=== PATIENT | male | born 1950 | race Two or more races ===

== ENCOUNTER 2017-06-10 16:14 | Inpatient (IN) | payer MEDICARE, MEDICAID ==
[~2017-06-10] VITALS: Ht 175.3 cm; Wt 77.1 kg
[~2017-06-10 16:14] MED LIST: ACET-868 PO; AMLO5TAB4 PO; DONE5TAB7 PO; GABA600T PO; HYDR-4076 PO; INSU100V10 SQ; INSU100V3 SQ; LEVO500T75 PO; LORA-259 PO; MAGN400T26 PO; METF500T4 PO; OLAN5TAB6 PO; TEMA7.5C PO
--- NOTE | 2017-06-10 16:20 | NUR ---
[facility] PRIVATE EMS FROM [facility] FOR 2 EPISODES OF SYNCOPE TODAY AT 1130am, NO TRAUMA, PT WAS CAUGHT AND ASSISTED TO BED PER REPORT. PT IS NON VERBAL. PT ASSISTED TO ED BED 02. PLACED ON CONT CARDIAC AND POX MONITORING, PENDING ER MD BARON
[2017-06-10] MEDS ORDERED: IV NS 0.9% 500 ML BAG IV ONE (16:30)
[2017-06-10 16:58] LABS: BASOPHILS # (AUTO) 0.2 /CMM (0.0-0.2); BASOPHILS % (AUTO) 1.6 % (0.0-2.0); EOSINOPHILS # (AUTO) 0.1 /CMM (0.0-0.7); HEMATOCRIT 40 % (39-51); HEMOGLOBIN 13.6 g/dL (13.5-17.5); LYMPHOCYTES # (AUTO) 2.3 /CMM (0.8-4.8); LYMPHOCYTES % (AUTO) 19.4 % (20.0-44.0); MEAN CORPUSCULAR HEMOGLOBIN 30 PG (26.0-33.0); MEAN CORPUSCULAR HGB CONC 34 g/dl (31.0-36.0); MEAN CORPUSCULAR VOLUME 89 fL (80-96); MONOCYTES # (AUTO) 0.6 /CMM (0.1-1.30); MONOCYTES % (AUTO) 4.9 % (2.0-12.0); NEUTROPHILS # (AUTO) 8.8 /CMM (1.8-8.9); NEUTROPHILS % (AUTO) 73.1 % (43.0-81.0); PLATELET COUNT (AUTO) 223 /CMM (150-450); RDW COEFFICIENT OF VARIATION 12.7 (11.5-15.0); RED BLOOD CELL COUNT(AUTO) 4.51 MIL/uL (4.5-6.0)
[2017-06-10 17:08] LABS: CALCIUM, SERUM 8.7 mg/dL (8.5-10.1); CARBON DIOXIDE 24 mmol/L (21-32); CHLORIDE 105 mmol/L (98-107); GLUCOSE 133 mg/dL (74-106); POTASSIUM 4.4 mmol/L (3.5-5.1); SODIUM SERUM 138 mmol/L (136-145); UREA NITROGEN, BLOOD 32 mg/dL (7-18)
--- NOTE | 2017-06-10 17:10 | NUR ---
RAC #18 IV ACCESS. BLOOD SAMPLE COLLECTED SENT TO LAB
--- NOTE | 2017-06-10 17:10 | NUR ---
PT TAKEN TO CT
[2017-06-10 17:17] LABS: TROPONIN I < 0.017 ng/mL (0.00-0.056)
[2017-06-10] MEDS ORDERED: IV NS 0.9% 1,000 ML BAG IV ONE (18:30)
--- NOTE | 2017-06-10 18:53 | NUR ---
PAGED EPIC FOR PANEL
[2017-06-10] MEDS ORDERED: IV NS 0.9% 1,000 ML IV PRN (19:04)
--- NOTE | 2017-06-10 19:24 | NUR ---
CALLED NURSE SUP FOR TELE BED
[2017-06-10] MEDS ORDERED: SIMV10TA6 PO (19:28)
[2017-06-10] MEDS ORDERED: SITA100T PO (19:28)
[2017-06-10] MEDS ORDERED: RISP0.5T20 PO (19:28)
[2017-06-10] MEDS ORDERED: LISI10TA5 PO (19:28)
[2017-06-10] MEDS ORDERED: UBID100C13 PO (19:28)
[2017-06-10] MEDS ORDERED: TOPI50TA PO (19:28)
[2017-06-10] MEDS ORDERED: CHOL10002 PO (19:28)
[2017-06-10] MEDS ORDERED: MELA3TAB PO (19:28)
[2017-06-10] MEDS ORDERED: CALC-1026 PO (19:28)
[2017-06-10] MEDS ORDERED: DOCU100C36 PO (19:28)
[2017-06-10] MEDS ORDERED: INSU100I30 SQ (19:28)
[2017-06-10] MEDS ORDERED: ONDANSETRON HCL/PF 4 MG/2 ML VIAL IVP PRN (19:30)
[2017-06-10] MEDS ORDERED: ACETAMINOPHEN 325 MG TABLET PO PRN ×2 (19:30)
[2017-06-10] MEDS ORDERED: MAG HYDROX/AL HYDROX/SIMETH 30 ML UDC PO PRN (19:30)
[2017-06-10] MEDS ORDERED: HYDROCODONE/APAP 5/325MG 1 EACH TABLET PO PRN (19:30)
[2017-06-10] MEDS ORDERED: Z GUARD REMEDY 2 OZ OINT TP PRN (19:30)
[2017-06-10] MEDS ORDERED: DEXTROSE 50%-WATER 50 ML DISP.SYRIN IV PRN (19:30)
[2017-06-10] MEDS ORDERED: INSULIN REGULAR, HUMAN 100 UNIT/ML 3 ML VIAL SQ PRN (19:30)
[2017-06-10] MEDS ORDERED: MAGNESIUM HYDROXIDE 30 ML UDC PO PRN (19:30)
[2017-06-10] MEDS ORDERED: LORAZEPAM 1 MG TABLET PO PRN (19:30)
--- NOTE | 2017-06-10 19:35 | NUR ---
GAVE REPORT TO JORGE FOR RAND
[2017-06-10 20:00] VITALS: BP 111/70
[2017-06-10 20:08] VITALS: BP 111/70
--- NOTE | 2017-06-10 20:08 | NUR ---
TELE/RN NOTES RECEIVED PT. FROM ER VIA BRAYAN. PT. IS AWAKE, ALERT AND ORIENTED X1. BREATHING EVEN AND UNLABORED ON ROOM AIR. NO SOB, RESPIRATORY DISTRESS OR COMPLAINTS OF PAIN NOTED AT THIS TIME. NO COMPLAINTS OF LIGHTHEADED OR DIZZINESS NOTED AT THIS TIME. ORIENTED PT. TO ROOM. PLACED EXTERNAL CARE MANAGEMENT ASSISTANT ON PT. CURRENT RHYTHM = SINUS RHYTHM HR 63. PT. WITH RIGHT AC 18 GAUGE IV SALINE LOCK PRESENT, PATENT AND INTACT. PT. WITH FAMILY MEMBERS PRESENT AT BEDSIDE. BED LOCKED AND IN LOWEST POSITION, SIDE RAILS UP X3, BED ALARM ON, CALL LIGHT WITHIN REACH, WILL CONTINUE TO MONITOR.
[2017-06-10] MEDS: BLOOD SUGAR DIAGNOSTIC 1 EACH STRIP VI SCH (21:42)
[2017-06-10] MEDS: TEMAZEPAM 7.5 MG CAPSULE PO SCH (21:42)
--- NOTE | 2017-06-10 23:10 | NUR ---
TELE/RN NOTES NOTIFIED EPIC CHIEF LIBRARIAN BRANCH OR DEPARTMENT DR. ALEXANDER PT. BILATERAL CAROTID DUPLEX RESULTED. RESULTS STATE " NO EVIDENCE FOR HEMODYNAMICALLY SIGNIFICANT CAROTID ARTERY STENOSIS, NORMAL ANTEGRADE FLOW IN THE LEFT VERTEBRAL ARTERY. RIGHT VERTEBRAL ARTERY NOT SEEN". PT. VITAL SIGNS STABLE. PER DR. ALEXANDER OK, NO NEW ORDERS AT THIS TIME. WILL CONTINUE TO MONITOR.
[2017-06-11] VITALS: BP 108/65
[2017-06-11 04:00] VITALS: BP 122/70
--- NOTE | 2017-06-11 06:02 | NUR ---
TELE/RN NOTES PT. IS LYING IN BED RESTING. BREATHING EVEN AND UNLABORED ON ROOM AIR. NO SOB, RESPIRATORY DISTRESS OR COMPLAINTS OF PAIN NOTED AT THIS TIME AND THROUGHOUT SHIFT. NO COMPLAINTS OF LIGHTHEADED OR DIZZINESS NOTED AT THIS TIME. PT. WITH EXTERNAL PACKAGE DELIVERY DRIVER PRESENT AND INTACT. CURRENT RHYTHM = SINUS RHYTHM HR 62. PT. WITH RIGHT AC 18 GAUGE IV SALINE LOCK PRESENT, PATENT AND INTACT ADMINISTERING TO PT. NS @ 75 ML/HR. ALL PT. NEEDS MET. PT. OFFLOADED, TURNED AND REPOSITIONED Q2H AND NEEDED. BED LOCKED AND IN LOWEST POSITION, SIDE RAILS UP X3, BED ALARM ON, CALL LIGHT WITHIN REACH, WILL ENDORSE TO DAYSHIFT NURSE FOR CONTINUITY OF CARE.
[2017-06-11] MEDS: BLOOD SUGAR DIAGNOSTIC 1 EACH STRIP VI SCH ×4 (06:35→21:38)
[2017-06-11 06:51] LABS: BASOPHILS % (AUTO) 0.4 % (0.0-2.0); EOSINOPHILS # (AUTO) 0.1 /CMM (0.0-0.7); EOSINOPHILS % (AUTO) 1.6 % (0.0-6.0); HEMATOCRIT 35 % (39-51); HEMOGLOBIN 12.2 g/dL (13.5-17.5); LYMPHOCYTES % (AUTO) 24.8 % (20.0-44.0); MEAN CORPUSCULAR HEMOGLOBIN 31 PG (26.0-33.0); MEAN CORPUSCULAR HGB CONC 35 g/dl (31.0-36.0); MEAN CORPUSCULAR VOLUME 89 fL (80-96); MONOCYTES # (AUTO) 0.5 /CMM (0.1-1.30); MONOCYTES % (AUTO) 6.7 % (2.0-12.0); NEUTROPHILS # (AUTO) 5.3 /CMM (1.8-8.9); NEUTROPHILS % (AUTO) 66.5 % (43.0-81.0); PLATELET COUNT (AUTO) 194 /CMM (150-450); RDW COEFFICIENT OF VARIATION 13.5 (11.5-15.0); RED BLOOD CELL COUNT(AUTO) 3.97 MIL/uL (4.5-6.0); WHITE BLOOD COUNT (AUTO) 7.9 K/uL (4.3-11.0)
[2017-06-11 07:27] LABS: CREATININE 0.9 mg/dL (0.6-1.3); MAGNESIUM 1.5 mg/dL (1.8-2.4); PHOSPHORUS 2.8 mg/dL (2.5-4.9); POTASSIUM 3.8 mmol/L (3.5-5.1)
--- NOTE | 2017-06-11 07:30 | NUR ---
PT RECEIVED RESTING COMFORTABLY IN BED. NO S/S OR C/O PAIN OR DISTRESS NOTED. SIDE RAILS UP X2, CALL LIGHT LEFT WITHIN REACH. WILL CONTINUE PLAN OF CARE.
[2017-06-11 08:00] VITALS: BP 101/56
[2017-06-11] MEDS: OLANZAPINE 5 MG/TAB.RAPDIS PO SCH ×3 (08:34→16:42)
[2017-06-11] MEDS: MAGNESIUM OXIDE 400 MG TABLET PO SCH ×3 (08:34→16:42)
[2017-06-11] MEDS: GABAPENTIN 300 MG CAPSULE PO SCH ×5 (08:35→17:00)
[2017-06-11] MEDS: POTASSIUM CHLORIDE 20 MEQ TAB.PRT.SR PO SCH ×2 (10:15→12:33)
[2017-06-11] MEDS: IV NS 0.9% 1,000 ML IV SCH ×2 (10:22→18:08)
[2017-06-11 11:00] LABS: IRON, SERUM 87 ug/dl (50-175); TOTAL IRON BINDING CAPACITY 179 ug/dl (250-450)
[2017-06-11 11:08] LABS: ALANINE AMINOTRANSFERASE 26 U/L (12-78); ALBUMIN 3.2 g/dL (3.4-5.0); ALKALINE PHOSPHATASE 52 U/L (46-116); ASPARTATE AMINOTRANSFERASE 20 U/L (15-37); BILIRUBIN,DIRECT 0.1 mg/dL (0.0-0.2); BILIRUBIN,TOTAL 0.7 mg/dL (0.2-1.0)
[2017-06-11 11:10] LABS: CHOLESTEROL 75 mg/dL (<200); FERRITIN 156 ng/mL (8-388); HDL CHOLESTEROL 23 mg/dL (40-60); LDL 43 mg/dL (0-99); THYROID STIMULATING HORMONE 2.181 uIU/mL (0.358-3.74); TRIGLYCERIDES 109 mg/dL (30-150)
[2017-06-11] MEDS: TOPIRAMATE 25 MG TABLET PO SCH ×2 (12:26→21:33)
[2017-06-11] MEDS: risperiDONE 0.25 MG TABLET PO SCH ×3 (12:30→16:42)
[2017-06-11 13:38] LABS: TROPONIN I < 0.017 ng/mL (0.00-0.056)
[2017-06-11 16:00] VITALS: BP 100/61
[2017-06-11] MEDS: Magnesium 1GM/D5W 100ML PREMIX 100 ML IV SCH ×2 (16:34→21:33)
[2017-06-11] MEDS ORDERED: DONEPEZIL 5 MG TABLET PO SCH (18:00)
[2017-06-11 18:15] LABS: APPEARANCE,URINE CLEAR (CLEAR); BILIRUBIN,URINE NEGATIVE (NEGATIVE); BLOOD, URINE NEGATIVE Ery/uL (NEGATIVE); COLOR,URINE YELLOW (YELLOW); KETONES,URINE NEGATIVE (NEGATIVE); LEUKOCYTE ESTERASE ,URINE NEGATIVE (NEGATIVE); NITRITE, URINE NEGATIVE (NEGATIVE); PROTEIN,URINE NEGATIVE (NEGATIVE); UGLUCOSE NEGATIVE (NEGATIVE); UROBILINOGEN,URINE 0.2 EU/dL (0.2)
--- NOTE | 2017-06-11 19:30 | NUR ---
MS/RN NOTES RECEIVED PT. LYING IN BED RESTING. BREATHING EVEN AND UNLABORED ON ROOM AIR. NO SOB, RESPIRATORY DISTRESS OR COMPLAINTS OF PAIN NOTED AT THIS TIME. PT. WITH LEFT HAND 22 GAUGE PERIPHERAL IV PRESENT, PATENT AND INTACT ADMINISTERING TO PT. NS @ 75 ML/HR. PT. FAMILY MEMBER PRESENT AT BEDSIDE. BED LOCKED AND IN LOWEST POSITION, SIDE RAILS UP X3, BED ALARM ON, CALL LIGHT WITHIN REACH, WILL CONTINUE TO MONITOR.
--- NOTE | 2017-06-11 19:35 | NUR ---
CHANGE OF SHIFT REPORT PT RESTING COMFORTABLY IN BED. NO S/S OR C/O PAIN OR DISTRESS NOTED. SIDE RAILS UP X2, CALL LIGHT LEFT WITHIN REACH. PT KEPT CLEAN, DRY, AND COMFORTABLE. NO SIGNIFICANT CHANGES SINCE PREVIOUS SHIFT. REPORT GIVEN TO CHANTELLE RN
[2017-06-11 20:00] VITALS: BP 121/72
[2017-06-11] MEDS: DOCUSATE SODIUM 100 MG CAPSULE PO SCH (21:33)
[2017-06-11] MEDS: SIMVASTATIN 10 MG TABLET PO SCH (21:33)
[2017-06-11] MEDS: TEMAZEPAM 7.5 MG CAPSULE PO SCH (21:34)
[2017-06-12] MEDS: TOPIRAMATE 25 MG TABLET PO SCH ×3 (05:54→21:54)
--- NOTE | 2017-06-12 06:13 | NUR ---
MS/RN NOTES PT. IS LYING IN BED RESTING. BREATHING EVEN AND UNLABORED ON ROOM AIR. NO SOB, RESPIRATORY DISTRESS OR COMPLAINTS OF PAIN NOTED AT THIS TIME. PT. WITH LEFT HAND 22 GAUGE PERIPHERAL IV PRESENT, PATENT AND INTACT ADMINISTERING TO PT. NS @ 75 ML/HR. ALL PT. NEEDS MET. BED LOCKED AND IN LOWEST POSITION, SIDE RAILS UP X3, BED ALARM ON, CALL LIGHT WITHIN REACH, WILL ENDORSE TO DAYSHIFT NURSE FOR CONTINUITY OF CARE.
[2017-06-12 06:33] LABS: BASOPHILS % (AUTO) 0.5 % (0.0-2.0); EOSINOPHILS # (AUTO) 0.2 /CMM (0.0-0.7); EOSINOPHILS % (AUTO) 1.9 % (0.0-6.0); HEMATOCRIT 39 % (39-51); HEMOGLOBIN 13.1 g/dL (13.5-17.5); LYMPHOCYTES # (AUTO) 1.7 /CMM (0.8-4.8); LYMPHOCYTES % (AUTO) 20.3 % (20.0-44.0); MEAN CORPUSCULAR HEMOGLOBIN 31 PG (26.0-33.0); MEAN CORPUSCULAR HGB CONC 34 g/dl (31.0-36.0); MEAN CORPUSCULAR VOLUME 90 fL (80-96); MONOCYTES # (AUTO) 0.6 /CMM (0.1-1.30); MONOCYTES % (AUTO) 6.7 % (2.0-12.0); NEUTROPHILS % (AUTO) 70.6 % (43.0-81.0); PLATELET COUNT (AUTO) 188 /CMM (150-450); RDW COEFFICIENT OF VARIATION 13.7 (11.5-15.0); WHITE BLOOD COUNT (AUTO) 8.5 K/uL (4.3-11.0)
[2017-06-12] MEDS: BLOOD SUGAR DIAGNOSTIC 1 EACH STRIP VI SCH ×4 (06:34→21:55)
[2017-06-12 06:41] LABS: ALANINE AMINOTRANSFERASE 49 U/L (12-78); ALBUMIN 3.1 g/dL (3.4-5.0); ALKALINE PHOSPHATASE 56 U/L (46-116); ASPARTATE AMINOTRANSFERASE 26 U/L (15-37); BILIRUBIN,TOTAL 0.4 mg/dL (0.2-1.0); CALCIUM, SERUM 8.1 mg/dL (8.5-10.1); CARBON DIOXIDE 23 mmol/L (21-32); CHLORIDE 113 mmol/L (98-107); CREATININE 0.8 mg/dL (0.6-1.3); GLUCOSE 104 mg/dL (74-106); MAGNESIUM 1.9 mg/dL (1.8-2.4); PHOSPHORUS 3.2 mg/dL (2.5-4.9); POTASSIUM 4.1 mmol/L (3.5-5.1); SODIUM SERUM 146 mmol/L (136-145); TOTAL PROTEIN, SERUM 6.1 g/dL (6.4-8.2); UREA NITROGEN, BLOOD 19 mg/dL (7-18)
[2017-06-12 06:46] LABS: TROPONIN I < 0.017 ng/mL (0.00-0.056)
--- NOTE | 2017-06-12 07:30 | NUR ---
RECEIVED PT. IN AM ALERT AND ORIENTED X1.IV INFUSING,SIDE RAILS UP TAPPING FREQ. ON BEDSIDE TABLE.
[2017-06-12 08:00] VITALS: BP 130/73
[2017-06-12] MEDS: LISINOPRIL (10MG) 10 MG TABLET PO SCH (09:00)
[2017-06-12] MEDS ORDERED: AMLODIPINE BESYLATE 5 MG TABLET PO SCH (09:00)
[2017-06-12] MEDS: CALCIUM CARBONATE (1250) 500 MG TABLET PO SCH (09:00)
[2017-06-12] MEDS: MAGNESIUM OXIDE 400 MG TABLET PO SCH ×3 (09:00→18:44)
[2017-06-12] MEDS: OLANZAPINE 5 MG/TAB.RAPDIS PO SCH ×3 (09:00→18:46)
[2017-06-12] MEDS: risperiDONE 0.25 MG TABLET PO SCH ×3 (09:00→18:45)
[2017-06-12] MEDS: GABAPENTIN 300 MG CAPSULE PO SCH ×6 (09:00→18:45)
[2017-06-12] MEDS: IV NS 0.9% 1,000 ML IV SCH ×2 (10:58→17:31)
--- NOTE | 2017-06-12 11:30 | NUR ---
EDUARD COSTELLO AND DR. BARR IN TO SEE PT.
[2017-06-12] MEDS: *INSULIN REGULAR(HUMULIN R)HUM 100 UNIT/ML VIAL SQ PRN ×2 (12:27→22:11)
[2017-06-12 16:00] VITALS: BP 146/80
--- NOTE | 2017-06-12 18:45 | NUR ---
RN WALKED IN TO RM TO FIND PT. HAD JUST REMOVED HEP LOCK,TO ENDORSE TO NEXT SHIFT.
--- NOTE | 2017-06-12 19:30 | NUR ---
MS RN OPENING NOTES: PATIENT IN BED, AOX1, CONFUSED. PATIENT UNABLE TO TALK CLEARLY, BUT ABLE TO SEAK INCOHERENT WORDS SLOWLY, ALSO NOTICED TO BE CLAPPING HANDS. ON ROOM AIR, BREATHING EVEN AND UNLABORED. BREATH SOUNDS CLEAR TO AUSCULTATION. APPEARS CALM AND IN NO DISTRESS, DENIES PAIN. PATIENT DOES NOT HAVE PIV AT THIS TIME, APPARENTLY PULLED OUT BY MISTAKE EARLIER. PROVIDED FOR COMFORT AND SAFETY. BED IN LOWEST AND LOCKED POSITION, SIDERAILS UP X 3, BED ALARMS ON. WILL CONT TO MONITOR.
[2017-06-12 20:00] VITALS: BP 137/73
--- NOTE | 2017-06-12 21:30 | NUR ---
RN NOTES: NEW IV LINE INSERTED OVER RFA G22, INTACT AND PATENT, WITH GOOD BLOOD RETURN. WILL CONT TO MONITOR.
[2017-06-12] MEDS: TEMAZEPAM 7.5 MG CAPSULE PO SCH (21:54)
[2017-06-12] MEDS: SIMVASTATIN 10 MG TABLET PO SCH (21:54)
[2017-06-12] MEDS: DOCUSATE SODIUM 100 MG CAPSULE PO SCH (21:54)
--- NOTE | 2017-06-12 22:00 | NUR ---
RN NOTES: BLOOD SUGAR CHECKED AT 131 MG/DL, ADMINISTRED 2 UNITS REGULAR INSULIN PER SCALE AND GAVE LIGHT SNACK.
--- NOTE | 2017-06-13 01:26 | NUR ---
RN NOTES: SPOKE TO TRANG KRISHNAMURTHY, REGARDING IV FLUIDS AFTER ORDERED 2ND BAG OF NS AT 200 ML/HR. PER YESSY, NO NEED FOR NEXT IV FLUID, KEEP IV HEPLOCK.
[2017-06-13 04:00] VITALS: BP_SYST 125; BP_SYST 126; BP_DIAS 68; BP_DIAS 70
[2017-06-13] MEDS: TOPIRAMATE 25 MG TABLET PO SCH ×2 (04:57→14:21)
[2017-06-13] MEDS: BLOOD SUGAR DIAGNOSTIC 1 EACH STRIP VI SCH ×2 (06:33→12:35)
--- NOTE | 2017-06-13 06:56 | NUR ---
MS RN CLOSING NOTES: PATIENT IN BED, AOX1, CONFUSED, ON ROOM AIR, BREATHING EVEN AND UNLABORED. APPEARS CALM AND IN NO DISTRESS. PIV OVER RFA G 22 INTACT AND PATENT TO FLUSH. AM BLOOD SUGAR CHECKED AT 121 MG/DL. DUE MEDS GIVEN. PROVIDED FOR COMFORT AND SAFETY. BED IN LOWEST AND LOCKED POSITION, SIDERAILS UP X 3, BED ALARMS ON. WILL ENDORSE TO AM RN FOR RAND.
--- NOTE | 2017-06-13 07:30 | NUR ---
RECEIVED PT. IN AM ALERT AND ORIENTED X1,TAPS ON BEDSIDE TABLE OFTEN,PLEASANT AND COOPERATIVE.VERY CONFUSED AND NON VERBAL HEP LOCK INTACT.SIDE RAILS UP.MED COMPLIANT.
[2017-06-13 08:00] VITALS: BP 122/74
[2017-06-13 09:00] VITALS: BP 99/50
[2017-06-13] MEDS: LISINOPRIL (10MG) 10 MG TABLET PO SCH (09:00)
[2017-06-13] MEDS: GABAPENTIN 300 MG CAPSULE PO SCH ×4 (09:00→14:20)
[2017-06-13 09:03] VITALS: BP 104/68
[2017-06-13 09:06] VITALS: BP 96/64
[2017-06-13 09:11] LABS: BASOPHILS % (AUTO) 0.3 % (0.0-2.0); EOSINOPHILS # (AUTO) 0.2 /CMM (0.0-0.7); EOSINOPHILS % (AUTO) 2.4 % (0.0-6.0); HEMATOCRIT 38 % (39-51); HEMOGLOBIN 12.9 g/dL (13.5-17.5); LYMPHOCYTES # (AUTO) 1.9 /CMM (0.8-4.8); LYMPHOCYTES % (AUTO) 19.2 % (20.0-44.0); MEAN CORPUSCULAR HEMOGLOBIN 31 PG (26.0-33.0); MEAN CORPUSCULAR HGB CONC 34 g/dl (31.0-36.0); MEAN CORPUSCULAR VOLUME 90 fL (80-96); MONOCYTES # (AUTO) 0.6 /CMM (0.1-1.30); NEUTROPHILS # (AUTO) 7.1 /CMM (1.8-8.9); NEUTROPHILS % (AUTO) 72.1 % (43.0-81.0); PLATELET COUNT (AUTO) 193 /CMM (150-450); RDW COEFFICIENT OF VARIATION 13.4 (11.5-15.0); RED BLOOD CELL COUNT(AUTO) 4.22 MIL/uL (4.5-6.0); WHITE BLOOD COUNT (AUTO) 9.9 K/uL (4.3-11.0)
[2017-06-13] MEDS: OLANZAPINE 5 MG/TAB.RAPDIS PO SCH ×2 (09:30→14:21)
[2017-06-13] MEDS: MAGNESIUM OXIDE 400 MG TABLET PO SCH ×2 (09:30→14:20)
[2017-06-13] MEDS: risperiDONE 0.25 MG TABLET PO SCH ×2 (09:31→14:20)
[2017-06-13 09:47] LABS: BILIRUBIN,TOTAL 0.6 mg/dL (0.2-1.0); CREATININE 0.9 mg/dL (0.6-1.3); MAGNESIUM 1.7 mg/dL (1.8-2.4); PHOSPHORUS 3.1 mg/dL (2.5-4.9); POTASSIUM 3.9 mmol/L (3.5-5.1); TOTAL PROTEIN, SERUM 5.9 g/dL (6.4-8.2)
[2017-06-13] MEDS: CALCIUM CARBONATE (1250) 500 MG TABLET PO SCH (10:15)
--- NOTE | 2017-06-13 12:00 | NUR ---
CONOR DURBIN IN AND DC ORDER GIVEN.
--- NOTE | 2017-06-13 14:55 | NUR ---
DC PAPERWORK MADE READY-ALL PAPERS SIGNED.HEP LOCK OUT. SHOTWELD OPERATOR GIVEN REPORT,REPORT CALLED TO FACILITY.TAKEN TO SNF VIA AMBULANCE.
== END 2017-06-13 15:00 | DRG 100 ==
LOC: ER 16:17 → TELE 19:58 → MED 06-11 12:46
PROVIDERS: ADMIT Internal Medicine; ATTEND Internal Medicine
DX: G40.909 Epilepsy, unspecified, not intractable, without status epilepticus (principal); N17.0 Acute kidney failure with tubular necrosis; E44.1 Mild protein-calorie malnutrition; R55 Syncope and collapse; G30.9 Alzheimer's disease, unspecified; F02.80 Dementia in other diseases classified elsewhere, unspecified severity, without behavioral disturbance, psychotic disturbance, mood disturbance, and anxiety; E11.40 Type 2 diabetes mellitus with diabetic neuropathy, unspecified; D63.8 Anemia in other chronic diseases classified elsewhere; F41.9 Anxiety disorder, unspecified; I10 Essential (primary) hypertension; K21.9 Gastro-esophageal reflux disease without esophagitis; E83.42 Hypomagnesemia; F32.9 Major depressive disorder, single episode, unspecified; I45.10 Unspecified right bundle-branch block; E88.09 Other disorders of plasma-protein metabolism, not elsewhere classified; Z68.25 Body mass index [BMI] 25.0-25.9, adult; R00.1 Bradycardia, unspecified; Z79.84 Long term (current) use of oral hypoglycemic drugs
CPT/HCPCS: 36415; 70450-TC; 71045-TC; 80048-TC; 80053-TC; 80061-TC; 80076-TC; 80305; 81000-TC; 82306; 82728-TC; 82962-TC; 83540-TC; 83735-TC; 84100-TC; 84439-TC; 84443-TC; 84484-TC; 85025-TC; 87081-TC; 93307-TC; 93880-TC; A4606; J1815; J3475; J7030; J7040; Z7610

== ENCOUNTER 2017-07-01 13:39 | Emergency (ER) | payer MEDICARE, MEDICAID ==
[~2017-07-01] VITALS: Ht 180.3 cm; Wt 72.6 kg
[~2017-07-01 13:39] MED LIST changes: -AMLO5TAB4 PO; +CALC-1026 PO; +CHOL10002 PO; +DOCU100C36 PO; -DONE5TAB7 PO; -HYDR-4076 PO; +INSU100I30 SQ; -INSU100V10 SQ; -LEVO500T75 PO; +LISI10TA5 PO; -LORA-259 PO; -MAGN400T26 PO; +MELA3TAB PO; -OLAN5TAB6 PO; +RISP0.5T20 PO; +SIMV10TA6 PO; +SITA100T PO; -TEMA7.5C PO; +TOPI50TA PO; +UBID100C13 PO
--- NOTE | 2017-07-01 13:45 | NUR ---
BB PRIVATE EMS FROM SNF FOR S/P FALL THIS AM, +HEAD HIT THE GROUND NO KO. PT FULLY AWAKE, NONVERBAL. SEEN BY PATIENT SCHEDULING MANAGER FOR EVAL. VSS. SAFETY AND COMFORT MEASURES PROVIDED. WILL MONITOR.
--- NOTE | 2017-07-01 14:05 | NUR ---
PT MEDICATED ORDERED.
[2017-07-01] MEDS ORDERED: TDAP [DIPH/PERTUSSIS/TET] 0.5 ML VIAL IM ONE (14:20)
[2017-07-01] MEDS: TDAP [DIPH/PERTUSSIS/TET] 0.5 ML VIAL IM ONE (14:26)
--- NOTE | 2017-07-01 18:02 | NUR ---
REPORT GIVEN TO [facility] STAFF FOR TRANSPORT.
[2017-07-01 18:19] VITALS: BP 131/65
== END 2017-07-01 18:20 ==
LOC: ER 13:40
DX: S00.01XA Abrasion of scalp, initial encounter (principal); R51 Headache; E11.9 Type 2 diabetes mellitus without complications; F02.80 Dementia in other diseases classified elsewhere, unspecified severity, without behavioral disturbance, psychotic disturbance, mood disturbance, and anxiety; F41.9 Anxiety disorder, unspecified; G30.9 Alzheimer's disease, unspecified; G40.909 Epilepsy, unspecified, not intractable, without status epilepticus; I10 Essential (primary) hypertension; K21.9 Gastro-esophageal reflux disease without esophagitis; S09.90XA Unspecified injury of head, initial encounter; Z79.4 Long term (current) use of insulin; Z23 Encounter for immunization; W01.198A Fall on same level from slipping, tripping and stumbling with subsequent striking against other object, initial encounter; Y93.89 Activity, other specified; Y92.89 Other specified places as the place of occurrence of the external cause; Y99.8 Other external cause status
CPT/HCPCS: 70450-TC; 72125-TC; 82962-TC; 90715; A4606; Z7610

== ENCOUNTER 2018-04-12 04:51 | Inpatient (IN) | payer MEDICARE, MEDICAID ==
[~2018-04-12] VITALS: Ht 177.8 cm; Wt 79.4 kg
[2018-04-12] VITALS (69 sets, daily range): BP systolic 78–135; BP diastolic 45–72
[~2018-04-12 04:51] MED LIST changes: +METF-440 PO; -METF500T4 PO
[2018-04-12] MEDS ORDERED: LIDOCAINE 2% JEL UROJET 10 ML MM ONE ×2 (05:00→05:07)
--- NOTE | 2018-04-12 05:05 | NUR ---
[facility]LEV[facility] TEMP. PT ALERT, WARM TO THE TOUCH. TACHYCARDIC, HYPOTENSIVE.
--- NOTE | 2018-04-12 05:07 | NUR ---
LABS DRAWN AND GIVEN TO LAB.
[2018-04-12] MEDS ORDERED: ACETAMINOPHEN 650 MG/SUPP.RECT RC ONE ×2 (05:12→05:30)
[2018-04-12 05:20] LABS: BASOPHILS # (AUTO) 0.1 /CMM (0.0-0.2); BASOPHILS % (AUTO) 0.2 % (0.0-2.0); EOSINOPHILS % (AUTO) 0.1 % (0.0-6.0); HEMATOCRIT 42 % (39-51); HEMOGLOBIN 14.3 g/dL (13.5-17.5); LYMPHOCYTES # (AUTO) 0.9 /CMM (0.8-4.8); LYMPHOCYTES % (AUTO) 2.7 % (20.0-44.0); MEAN CORPUSCULAR HGB CONC 34 g/dl (31.0-36.0); MEAN CORPUSCULAR VOLUME 88 fL (80-96); MONOCYTES # (AUTO) 1.1 /CMM (0.1-1.30); MONOCYTES % (AUTO) 3.2 % (2.0-12.0); NEUTROPHILS # (AUTO) 30.9 /CMM (1.8-8.9); NEUTROPHILS % (AUTO) 93.8 % (43.0-81.0); PLATELET COUNT (AUTO) 217 /CMM (150-450)
--- NOTE | 2018-04-12 05:20 | NUR ---
SHELL CATHETER PLACED PER DR ORDERS, URINE SAMPLE OBTAINED.
[2018-04-12] MEDS ORDERED: CEFTRIAXONE 1 G in IV D5W 50 ML IV ONE (05:30)
[2018-04-12] MEDS ORDERED: IV NS 0.9% 1,000 ML BAG IV ONE ×2 (05:30→07:30)
[2018-04-12] MEDS ORDERED: CEFTRIAXONE 1GM BAG (ER ONLY) 50 ML IV ONE (05:40)
[2018-04-12 05:49] LABS: CALCIUM, SERUM 8.7 mg/dL (8.5-10.1); CARBON DIOXIDE 17 mmol/L (21-32); CHLORIDE 108 mmol/L (98-107); CREATININE 1.3 mg/dL (0.6-1.3); GLUCOSE 155 mg/dL (74-106); POTASSIUM 3.6 mmol/L (3.5-5.1); SODIUM SERUM 142 mmol/L (136-145); UREA NITROGEN, BLOOD 28 mg/dL (7-18)
[2018-04-12 05:59] LABS: WHITE BLOOD COUNT (AUTO) 32.9 K/uL (4.3-11.0)
[2018-04-12 06:01] LABS: ALANINE AMINOTRANSFERASE 29 U/L (12-78); ALBUMIN 3.8 g/dL (3.4-5.0); ALKALINE PHOSPHATASE 64 U/L (46-116); ASPARTATE AMINOTRANSFERASE 23 U/L (15-37); B-TYPE NATRIURETIC PEPTIDE 507 PG/ML (0-125); BILIRUBIN,DIRECT 0.2 mg/dL (0.0-0.2); BILIRUBIN,TOTAL 1.1 mg/dL (0.2-1.0); TOTAL PROTEIN, SERUM 6.9 g/dL (6.4-8.2)
[2018-04-12 06:03] LABS: APPEARANCE,URINE CLEAR (CLEAR); BILIRUBIN,URINE NEGATIVE (NEGATIVE); BLOOD, URINE TRACE-INTA Ery/uL (NEGATIVE); COLOR,URINE DARK YELLO (YELLOW); KETONES,URINE NEGATIVE (NEGATIVE); LEUKOCYTE ESTERASE ,URINE NEGATIVE (NEGATIVE); NITRITE, URINE NEGATIVE (NEGATIVE); PROTEIN,URINE NEGATIVE (NEGATIVE); UGLUCOSE NEGATIVE (NEGATIVE); UROBILINOGEN,URINE 0.2 EU/dL (0.2)
[2018-04-12 06:13] LABS: BACTERIA,URINE Few /HPF (None Seen); SQUAMOUS EPITHELIAL CELL,UR Rare /HPF (None Seen); WBC,URINE 0-2 /HPF (0-3)
--- NOTE | 2018-04-12 06:28 | NUR ---
Pt taken TO CT.
[2018-04-12] MEDS ORDERED: VANCOMYCIN 1 GM in IV D5W 250 ML IV ONE ×2 (06:30→09:00)
[2018-04-12] MEDS ORDERED: CEFEPIME 1 GM in IV D5W 50 ML IV ONE (06:30)
--- NOTE | 2018-04-12 06:35 | NUR ---
PT RETURNED FROM CT. PT PUT ON THE MONITOR AND PULSE OX. TACHYCARDIC AND HYPOTENSIVE.
[2018-04-12 06:41] LABS: LYMPHOCYTES % (MANUAL) 1 % (16-48); MONOCYTES % (MANUAL) 4 % (0-11.0); NEUTROPHILS % (MANUAL) 95 (42-76)
[2018-04-12] MEDS ORDERED: CEFEPIME 1 GM VIAL ONE (06:53)
--- NOTE | 2018-04-12 07:07 | NUR ---
PANEL ON-CALL PAGED
[2018-04-12] MEDS ORDERED: IV NS 0.9% 1,000 ML IV PRN (07:29)
[2018-04-12] MEDS ORDERED: NOREPINEPHRINE 8 MG in IV D5W 500 ML IV PRN (07:30)
[2018-04-12] MEDS ORDERED: MAG HYDROX/AL HYDROX/SIMETH 30 ML UDC PO PRN (07:30)
[2018-04-12] MEDS ORDERED: MAGNESIUM HYDROXIDE 30 ML UDC PO PRN ×2 (07:30→09:00)
[2018-04-12] MEDS ORDERED: ACETAMINOPHEN 325 MG TABLET PO PRN ×2 (07:30→09:00)
[2018-04-12] MEDS ORDERED: ONDANSETRON HCL/PF 4 MG/2 ML VIAL IVP PRN (07:30)
--- NOTE | 2018-04-12 07:36 | NUR ---
REPORT GIVEN TO SUKHWINDER BIRD ICU FOR RAND.
[2018-04-12] MEDS ORDERED: BLOO-668 IN (07:39)
[2018-04-12] MEDS ORDERED: ERGO500014 PO (07:39)
[2018-04-12] MEDS ORDERED: DONE10TA44 PO (07:39)
[2018-04-12] MEDS ORDERED: ASPI-1169 PO (07:39)
[2018-04-12] MEDS ORDERED: MAGN400T26 PO (07:40)
[2018-04-12] MEDS ORDERED: MAGN400O6 PO (07:40)
[2018-04-12] MEDS ORDERED: LINA5TAB PO (07:40)
[2018-04-12] MEDS ORDERED: NA P133E RC (07:40)
[2018-04-12] MEDS ORDERED: ACET-868 PO (07:40)
[2018-04-12] MEDS ORDERED: BISA10SU8 RC (07:40)
[2018-04-12] MEDS ORDERED: DEXTROSE 50%-WATER 50 ML DISP.SYRIN IV PRN (08:00)
--- NOTE | 2018-04-12 08:05 | NUR ---
RECEIVED PATIENT FROM ER DX SEPSIS/SEPTIC SHOCK S/T PNA. PATIENT VSS. ROOM AIR STABLE. IN ER HX OF HYPOTENSION. WILL MONITOR. A./OX1 CONFUSED NON VERBAL PER FAMILY THIS IS PATIENT USUAL. SHELL CATH INSERTED IN ER DRAINING TO GRAVITY. IV SITES C/D/I/P WILL MONITOR. PER RN IN ER FLUID CHALLENGE COMPLETED. PENDING NEURO, CARDIO, AND ID CONSULTS. PATIENT CORE TEMP 98.5 AND WILL MONITOR. BED BATH COMPLETED. NO WOUNDS PRESENT. SAFETY, SKIN, ASPIRATION PRECAUTIONS IN PLACE AND WILL MONITOR.
[2018-04-12] MEDS ORDERED: FEE PK DOSING 1 MIN EA MC ONE (08:23)
--- NOTE | 2018-04-12 08:25 | NUR ---
per srikanth carmen at bedside. patient needs to have a picc line.
[2018-04-12] MEDS: PANTOPRAZOLE 40 MG VIAL IV SCH (08:27)
[2018-04-12] MEDS: Magnesium 1GM/D5W 100ML PREMIX 100 ML IV SCH ×4 (08:27→11:44)
[2018-04-12] MEDS: ENOXAPARIN SODIUM 40 MG/0.4 ML DISP.SYRIN SQ SCH (08:30)
[2018-04-12] MEDS: IV NS 0.9% 250 ML IV PRN (08:35)
[2018-04-12] MEDS: LISINOPRIL (10MG) 10 MG TABLET PO SCH (09:00)
[2018-04-12] MEDS: ASPIRIN 81 MG TAB.CHEW PO SCH (09:00)
[2018-04-12] MEDS: MAGNESIUM OXIDE 400 MG TABLET PO SCH ×2 (09:00→17:00)
[2018-04-12] MEDS: METFORMIN 500 MG TABLET PO SCH ×2 (09:00→17:00)
[2018-04-12] MEDS ORDERED: BISACODYL SUPP (10 MG) 10 MG/SUPP.RECT SUPP.RECT RC PRN (09:00)
[2018-04-12] MEDS ORDERED: NA PHOS,M-B/NA PHOS,DI-BA 1 EA ENEMA RC PRN (09:00)
[2018-04-12] MEDS: LINAGLIPTIN 5 MG TABLET PO SCH (09:00)
--- NOTE | 2018-04-12 09:07 | NUR ---
per dr orosco please give total of 4g magnesium replacement
[2018-04-12] MEDS: IV NS 0.9% 1,000 ML IV SCH ×2 (09:16→13:08)
[2018-04-12] MEDS: HYDROCORTISONE SOD SUCCINATE 100 MG/2 ML VIAL IV SCH ×3 (09:19→17:29)
[2018-04-12] MEDS: GABAPENTIN 300 MG CAPSULE PO SCH ×3 (09:19→21:00)
[2018-04-12] MEDS: AZITHROMYCIN 500 MG in IV D5W 250 ML IV SCH (09:20)
[2018-04-12 09:28] LABS: THYROID STIMULATING HORMONE 1.754 uIU/mL (0.358-3.74)
[2018-04-12 09:51] LABS: ABG BASE EXCESS -8.6 mmol/L; ABG OXYGEN SATURATION 95.7 % (92.0-98.5); ABG PCO2 28.5 mmHg (35.0-45.0); ABG PH 7.353 (7.350-7.450); ABG PO2 82.2 mmHg (75.0-100.0); AaDO2 33.4 mmHg; COHb 0.6 % (0.5-1.5); MetHb 0.7 % (0.0-1.5); O2Hb 94.5 % (94.0-97.0); SITE, ABG Right Radial; VENT MODE, BG ROOM AIR
--- NOTE | 2018-04-12 09:53 | NUR ---
PATIENT PULLING AT IV SITES AND PICC LINE. PER FAMILY PATIENT USUALLY DOES THIS AND DOES NOT LIKE IV SITES AND IS USUALLY IN RESTRAINTS. PER PATIENT DAUGHTER OKAY FOR RESTRAINTS FOR PATIENT SAFETY.
[2018-04-12] MEDS ORDERED: PIPERACILLIN /TAZOBACTAM 3.375 G in IV D5W 50 ML IV ONE (10:00)
[2018-04-12] MEDS: FLUDROCORTISONE 0.1 MG TABLET PO SCH ×3 (11:01→23:33)
[2018-04-12] MEDS: BLOOD SUGAR DIAGNOSTIC 1 EACH STRIP IN SCH ×3 (11:02→23:33)
[2018-04-12] MEDS ORDERED: BLOOD SUGAR DIAGNOSTIC 1 EACH STRIP IN SCH (12:00)
[2018-04-12] MEDS ORDERED: UBIDECARENONE 75 MG PO SCH (13:00)
--- NOTE | 2018-04-12 14:50 | NUR ---
assisted patient to ct scan. bp stable
--- NOTE | 2018-04-12 15:15 | NUR ---
patient returned from ct scan
[2018-04-12] MEDS: LACTOBACILLUS RHAMNOSUS GG 1 EACH CAP.SPRINK PO SCH (17:00)
[2018-04-12] MEDS: CALCIUM CARBONATE (1250) 500 MG TABLET PO SCH (17:00)
[2018-04-12] MEDS: PIPERACILLIN /TAZOBACTAM 3.375 G in IV D5W 100 ML IV SCH ×2 (17:27→23:33)
[2018-04-12] MEDS: VANCOMYCIN 1 GM in IV D5W 250 ML IV SCH (17:29)
--- NOTE | 2018-04-12 17:50 | NUR ---
per srikanth please order patient back on 125ml.hour of ns
[2018-04-12] MEDS: IV NS 0.9% 1,000 ML IV PRN (18:10)
--- NOTE | 2018-04-12 19:14 | NUR ---
ALL DUE MEDS GIVEN AND ALL NEEDS MET. PATIENT ON 1MCG.MIN OF LEVO PER LUZ ORDER. SHELL CATH IN PLACE DRAINING TO GRAVITY. RESTRAINTS IN PLACE PATIENT PULLING AT IV LINES AND SHELL CATH. SAFETY, SKIN, ASPIRATION PRECAUTIONS IN PLACE AND MONITORED THROUGHOUT DAY. CARE ENDORSED TO MARGE NOVAK FOR RAND.
--- NOTE | 2018-04-12 19:30 | NUR ---
COMPONENT ENGINEER NOTE PT RECEIVED IN BED WITH DAUGHTER AT BEDSIDE. AWAKE BUT NONVERBAL. ON ROOM AIR AND SATURATING WELL. BREATHING REGULAR AND UNLABORED. IV REGINE PICC CLEAN WITH LEVO @ 1MCG/MIN AND IV FLUIDS INFUSING. SHELL CATHETER IN PLACE AND DRAINING BY GRAVITY. BILATERAL SOFT WRIST RESTRAINTS IN PLACE AND BILATERAL RADIAL PULSES PALPABLE WITH NO DISCOLORATION NOTED. CALL LIGHT WITHIN REACH. WILL MONITOR.
--- NOTE | 2018-04-12 19:46 | NUR ---
Patient resides at [facility] [phone], has hx of dementia and requires max assist with adl's. He is currently on bedhold x7days. Current dc plan is to dc back to SNF Addendum: 04/12/18 at 1946 by JEFE CAMPO RN Amended: Links added.
[2018-04-12] MEDS: DOCUSATE SODIUM 100 MG CAPSULE PO SCH (21:18)
[2018-04-12] MEDS: SIMVASTATIN 10 MG TABLET PO SCH (21:19)
[2018-04-12] MEDS: INSULIN GLARGINE, 100 UNIT/ML CARTRIDGE SQ SCH (22:00)
[2018-04-12] MEDS ORDERED: Medication Not On Formulary EA (Melatonin 3 MG) PO SCH (22:00)
[2018-04-12] MEDS: INSULIN REGULAR, HUMAN 100 UNIT/ML 3 ML VIAL SQ PRN (23:50)
[2018-04-13] VITALS (86 sets, daily range): BP systolic 84–176; BP diastolic 45–96
[2018-04-13] MEDS: IV NS 0.9% 1,000 ML IV PRN ×3 (01:44→18:18)
[2018-04-13 05:12] LABS: BASOPHILS % (AUTO) 0.1 % (0.0-2.0); EOSINOPHILS % (AUTO) 0.1 % (0.0-6.0); HEMATOCRIT 27 % (39-51); LYMPHOCYTES # (AUTO) 1.7 /CMM (0.8-4.8); MEAN CORPUSCULAR HGB CONC 33 g/dl (31.0-36.0); MEAN CORPUSCULAR VOLUME 89 fL (80-96); MONOCYTES % (AUTO) 3.9 % (2.0-12.0); NEUTROPHILS % (AUTO) 88.9 % (43.0-81.0); PLATELET COUNT (AUTO) 147 /CMM (150-450); RED BLOOD CELL COUNT(AUTO) 3.03 MIL/uL (4.5-6.0); WHITE BLOOD COUNT (AUTO) 24.8 K/uL (4.3-11.0)
[2018-04-13 05:14] LABS: BILIRUBIN,TOTAL 0.6 mg/dL (0.2-1.0); CALCIUM, SERUM 6.1 mg/dL (8.5-10.1); CREATININE 0.7 mg/dL (0.6-1.3); MAGNESIUM 1.5 mg/dL (1.8-2.4); PHOSPHORUS 1.3 mg/dL (2.5-4.9); TOTAL PROTEIN, SERUM 4.1 g/dL (6.4-8.2)
[2018-04-13 05:20] LABS: THYROID STIMULATING HORMONE 0.902 uIU/mL (0.358-3.74)
[2018-04-13 05:27] LABS: POTASSIUM 2.7 mmol/L (3.5-5.1)
[2018-04-13] MEDS: VANCOMYCIN 1 GM in IV D5W 250 ML IV SCH ×2 (05:30→19:39)
[2018-04-13] MEDS: BLOOD SUGAR DIAGNOSTIC 1 EACH STRIP IN SCH ×4 (05:30→22:33)
[2018-04-13] MEDS: FLUDROCORTISONE 0.1 MG TABLET PO SCH ×4 (05:31→23:51)
[2018-04-13] MEDS: IV NS 0.9% 250 ML IV PRN (06:00)
[2018-04-13] MEDS: POTASSIUM CL. PREMIX PERIPHER. 50 ML IV SCH ×2 (06:24→07:30)
--- NOTE | 2018-04-13 06:48 | NUR ---
SUPERVISOR PRODUCTION NOTE PT REMAINED STABLE DURING SHIFT. NO ACUTE DISTRESS NOTED. ALL NEEDS ATTENDED TO PROMPTLY. KEPT CLEAN AND DRY. SHELL IN PLACE AND DRAINING. NPO STATUS MAINTAINED. RECEIVED CRITICAL RESULTS POTASSIUM 2.7. NOTIFIED DEMAND EQUIPMENT REPAIRER DR. VENCES WITH ORDERS TO GIVE 60 MEQ KCL IV. ORDERS NOTED AND CARRIED OUT. WILL ENDORSE TO NEXT SHIFT FOR CONTINUITY OF CARE.
--- NOTE | 2018-04-13 07:15 | NUR ---
RECEIVED CARE OF PATIENT. AWAKE ALERT BASELINE MENTAL STATUS PER FAMILY. PER FAMILY PATIENT HAS NOT SPOKEN IN 6 MONTHS AND DIAGNOSED WITH DEMENTIA ABOUT 5-6 YEARS AGO. PATIENT ABLE TO SWALLOW APPLE SAUCE WITH NO COMPLICATIONS. ABLE TO PROTECT AIRWAY HOWEVER STILL PENDING SWALLOW EVAL WITH SPEECH THERAPIST FOR DIET ORDER/FLUIDS. IV SITES C/D/I/P AND IVF RUNNING PER MD ORDER. SHELL CATH IN PLACE DRAINING TO GRAVITY; NOW TUAN IN COLOR AND OUTPUT AROUND 500ML FOR PLASTIC SURGERY COORDINATOR. ROOM AIR STABLE. LEVO STOPPED AT 2AM AND BP STABLE AT THIS TIME. SAFETY, SKIN, ASPIRATION PRECAUTIONS IN PLACE AND WILL MONITOR
[2018-04-13] MEDS: Magnesium 1GM/D5W 100ML PREMIX 100 ML IV SCH ×4 (07:20→13:30)
--- NOTE | 2018-04-13 07:45 | NUR ---
PATIENT MORE ALERT TODAY. PATIENT SWALLOWS APPLESAUCE AND WATER WITH NO COMPLICATIONS. PER FAMILY PATIENT TAKES MEDICATIONS CRUSHED IN APPLESAUCE. NOTIFIED DR BARR AND PER MD FRIEND IV K REPLACEMENT AND ORDER 20MEQ KDUR Q1H X3 DOSES FOR REPLACEMENT.
[2018-04-13] MEDS: AZITHROMYCIN 500 MG in IV D5W 250 ML IV SCH (07:57)
[2018-04-13] MEDS ORDERED: POTASSIUM PHOSPHATE MM 15 MMOL in IV D5W 250 ML IV SCH (08:00)
[2018-04-13] MEDS: HYDROCORTISONE SOD SUCCINATE 100 MG/2 ML VIAL IV SCH ×3 (08:05→16:34)
[2018-04-13] MEDS: LACTOBACILLUS RHAMNOSUS GG 1 EACH CAP.SPRINK PO SCH ×2 (08:05→16:34)
[2018-04-13] MEDS: PANTOPRAZOLE 40 MG VIAL IV SCH (08:05)
[2018-04-13] MEDS: GABAPENTIN 300 MG CAPSULE PO SCH ×3 (08:06→22:09)
[2018-04-13] MEDS: METFORMIN 500 MG TABLET PO SCH ×2 (08:06→16:34)
[2018-04-13] MEDS: ASPIRIN 81 MG TAB.CHEW PO SCH (08:06)
[2018-04-13] MEDS: LINAGLIPTIN 5 MG TABLET PO SCH (08:06)
[2018-04-13] MEDS: ENOXAPARIN SODIUM 40 MG/0.4 ML DISP.SYRIN SQ SCH (08:07)
[2018-04-13] MEDS: PIPERACILLIN /TAZOBACTAM 3.375 G in IV D5W 100 ML IV SCH ×3 (08:10→23:51)
[2018-04-13] MEDS: LISINOPRIL (10MG) 10 MG TABLET PO SCH (08:11)
[2018-04-13] MEDS: MAGNESIUM OXIDE 400 MG TABLET PO SCH ×2 (08:11→16:34)
[2018-04-13] MEDS: POTASSIUM CHLORIDE 20 MEQ TAB.PRT.SR PO SCH ×3 (08:40→11:01)
[2018-04-13] MEDS: TOPIRAMATE 25 MG TABLET PO SCH ×2 (08:40→22:11)
[2018-04-13] MEDS: INSULIN REGULAR, HUMAN 100 UNIT/ML 3 ML VIAL SQ PRN ×2 (12:31→17:19)
[2018-04-13] MEDS: CALCIUM CARBONATE (1250) 500 MG TABLET PO SCH (16:34)
--- NOTE | 2018-04-13 18:24 | NUR ---
SPOKE WITH [facility]; AWARE OF PT VANCO TROUGH 12. WILL DELIVER VANCO
--- NOTE | 2018-04-13 19:11 | NUR ---
CARE ENDORSED TO RN FOR RAND. PATIENT VSS. IV SITES C/D/I/P AND PATIENT CALM AND COOPERATIVE. SHELL CATH IN PLACE DRAINING TO GRAVITY. SAFETY, SKIN, ASPIRATION PRECAUTIONS IN PLACE AND MONITORED THROUGHOUT DAY.
[2018-04-13] MEDS ORDERED: DEXTROSE 50%-WATER 50 ML DISP.SYRIN IV PRN (19:30)
--- NOTE | 2018-04-13 19:50 | NUR ---
MEDICAL LEADER. INITIAL ASSESSMENT. RECEIVED THE PT REST ON THE BED. AWAKE, ALERT, NONVERBAL. DOES NOT FOLLOW COMMANDS. BROADCAST NEWS PRODUCER SHOWING NSR. PT ON ROOM AIR. SAT 97%. NO ACUTE DISTRESS NOTED. IV LT UPPER ARM PICC LINE. IVF NS 120ML/H. .FC PATENT. URINE DRAINING. HOB ELEVATED. KIANA SOFT WRIST RESTRAINT CHECKED AND RELEASED. NO INJURY OR REDNESS NOTED. WILL CONTINUE TO MONITOR VITALS.
[2018-04-13] MEDS: SIMVASTATIN 10 MG TABLET PO SCH (22:09)
[2018-04-13] MEDS: DOCUSATE SODIUM 100 MG CAPSULE PO SCH (22:11)
[2018-04-13] MEDS: INSULIN GLARGINE, 100 UNIT/ML CARTRIDGE SQ SCH (22:36)
[2018-04-14] VITALS (34 sets, daily range): BP systolic 97–133; BP diastolic 56–82
[2018-04-14] MEDS: IV NS 0.9% 1,000 ML IV PRN ×3 (02:47→18:56)
[2018-04-14] MEDS: IV NS 0.9% 250 ML IV PRN (02:47)
--- NOTE | 2018-04-14 03:28 | NUR ---
HUMAN SERVICE SPECIALIST. AM CARE, ORAL CARE, BED BATH GIVEN. LINEN CHANGED REMAINING SAME IVF NS 125ML/H. KIANA SOFT WRIST RESTRAINT CHECKED AND RELEASED. NO INJURY OR REDNESS NOTED. FLOWER SHOP MANAGER SHOWING AT THIS TIME PALMA CARDIA. FC PATENT. URINE DRAINING. HOB ELEVATED. PT ON ROOM AIR. SAT 98%. NO ACUTE DISTRESS NOTED. HOB ELEVATED. TURN AND REPOSITION Q2H. WILL CONTINUE TO MONITOR,. VITALS
[2018-04-14 04:39] LABS: BASOPHILS % (AUTO) 0.1 % (0.0-2.0); EOSINOPHILS % (AUTO) 0.1 % (0.0-6.0); HEMATOCRIT 31 % (39-51); HEMOGLOBIN 10.3 g/dL (13.5-17.5); LYMPHOCYTES # (AUTO) 1.8 /CMM (0.8-4.8); LYMPHOCYTES % (AUTO) 8.8 % (20.0-44.0); MEAN CORPUSCULAR HGB CONC 33 g/dl (31.0-36.0); MEAN CORPUSCULAR VOLUME 89 fL (80-96); MONOCYTES # (AUTO) 0.8 /CMM (0.1-1.30); NEUTROPHILS # (AUTO) 17.7 /CMM (1.8-8.9); PLATELET COUNT (AUTO) 172 /CMM (150-450); RED BLOOD CELL COUNT(AUTO) 3.46 MIL/uL (4.5-6.0); WHITE BLOOD COUNT (AUTO) 20.4 K/uL (4.3-11.0)
[2018-04-14 04:53] LABS: ALBUMIN 2.4 g/dL (3.4-5.0); BILIRUBIN,TOTAL 0.4 mg/dL (0.2-1.0); CALCIUM, SERUM 7.1 mg/dL (8.5-10.1); CREATININE 0.9 mg/dL (0.6-1.3); MAGNESIUM 2.1 mg/dL (1.8-2.4); PHOSPHORUS 1.6 mg/dL (2.5-4.9); POTASSIUM 3.6 mmol/L (3.5-5.1)
[2018-04-14] MEDS: FLUDROCORTISONE 0.1 MG TABLET PO SCH ×4 (05:56→23:14)
[2018-04-14] MEDS: VANCOMYCIN 1 GM in IV D5W 250 ML IV SCH ×2 (05:56→17:32)
--- NOTE | 2018-04-14 07:09 | NUR ---
RECEIVED CARE OF PATIENT. RESTING COMFORTABLY. NO S/S DISTRESS. IV SITES C/D/I/P AND IVF RUNNING PER MD ORDER. PATIENT BP STABLE. SHELL CATH IN PLACE DRAINING TO GRAVITY. RESTRAINTS IN PLACE FOR SAFETY. SAFETY, SKIN, ASPIRATION PRECAUTIONS IN PLACE AND WILL MONITOR
[2018-04-14] MEDS: BLOOD SUGAR DIAGNOSTIC 1 EACH STRIP IN SCH ×4 (07:18→21:41)
[2018-04-14] MEDS: PIPERACILLIN /TAZOBACTAM 3.375 G in IV D5W 100 ML IV SCH ×2 (07:18→15:02)
[2018-04-14] MEDS: AZITHROMYCIN 500 MG in IV D5W 250 ML IV SCH (07:18)
[2018-04-14] MEDS: INSULIN REGULAR, HUMAN 100 UNIT/ML 3 ML VIAL SQ PRN ×3 (07:20→21:42)
[2018-04-14] MEDS: ENOXAPARIN SODIUM 40 MG/0.4 ML DISP.SYRIN SQ SCH (07:20)
[2018-04-14] MEDS: ASPIRIN 81 MG TAB.CHEW PO SCH (08:08)
[2018-04-14] MEDS: GABAPENTIN 300 MG CAPSULE PO SCH ×3 (08:08→21:32)
[2018-04-14] MEDS: HYDROCORTISONE SOD SUCCINATE 100 MG/2 ML VIAL IV SCH ×3 (08:08→16:35)
[2018-04-14] MEDS: LISINOPRIL (10MG) 10 MG TABLET PO SCH (08:08)
[2018-04-14] MEDS: LACTOBACILLUS RHAMNOSUS GG 1 EACH CAP.SPRINK PO SCH ×2 (08:08→16:35)
[2018-04-14] MEDS: METFORMIN 500 MG TABLET PO SCH ×2 (08:08→16:35)
[2018-04-14] MEDS: MAGNESIUM OXIDE 400 MG TABLET PO SCH ×2 (08:08→16:35)
[2018-04-14] MEDS: PANTOPRAZOLE 40 MG VIAL IV SCH (08:08)
[2018-04-14] MEDS: TOPIRAMATE 25 MG TABLET PO SCH ×2 (08:08→21:32)
[2018-04-14] MEDS: LINAGLIPTIN 5 MG TABLET PO SCH (08:08)
--- NOTE | 2018-04-14 08:40 | NUR ---
PER LUZ OK TO DOWNGRADE PATIENT TO TELE
--- NOTE | 2018-04-14 09:57 | NUR ---
OK TO DOWNGRADE TO TELE DR LIZ. REPORT GIVEN TO MARGE BRAY FOR RAND ROOM 102
[2018-04-14] MEDS ORDERED: K PHOS NEUTRAL 250 MG TABLET PO ONE (10:00)
--- NOTE | 2018-04-14 10:17 | NUR ---
PATIENT TRANSFERED TO TELE 102. CARE ENDORSED TO MARGE BRAY FOR RAND. CALLED YONI DAUGHTER AND NOTIFIED OF TRANSFER
--- NOTE | 2018-04-14 10:30 | NUR ---
DELIVERY COORDINATOR NOTE RECEIVED REPORT FROM MARGE PRETTY AND RECEIVED PATIENT FROM ICU AT 10:10 TO ROOM 102. CONNECTED TO TELE MONITOR, SINUS RHYTHM AND SINUS PALMA ON HEART MONITOR, HEART RATE IN THE HIGH 50S AND LOW 60S. NO RESPIRATORY DISTRESS NOTED, ON ROOM AIR. NO SIGNS OF PAIN, PATIENT NONVERBAL. IV SITES INTACT INFUSING IV FLUIDS AND ANTIBIOTICS ORDERED. VITAL SIGNS STABLE, CALL LIGHT WITHIN REACH, SIDE RAILS UP, BED IN LOW LOCKED POSITION, WILL CONTINUE TO MONITOR CLOSELY.
[2018-04-14] MEDS ORDERED: ENSURE ENLIVE 237 ML LIQUID (VANILLA) PO SCH (13:00)
[2018-04-14] MEDS: CALCIUM CARBONATE (1250) 500 MG TABLET PO SCH (16:35)
--- NOTE | 2018-04-14 17:00 | NUR ---
MARINE UNDERWRITER NOTE PATIENT NOTED WITH PINKISH BLOOD TINGED URINE. VITAL SIGNS STABLE, NO ACUTE DISTRESS NOTED. PAGETai ESCOBAR NP AND MADE HIM AWARE. NO NEW ORDERS AT THIS TIME.
[2018-04-14] MEDS: GLUCERNA SHAKE 237 ML CAN PO SCH (17:57)
--- NOTE | 2018-04-14 19:48 | NUR ---
FORENSICS ANALYST NOTE PATIENT RESTING IN BED IN STABLE CONDITION, NO RESPIRATORY DISTRESS OR SIGNS OF PAIN. NONVERBAL, BILATERAL SOFT WRIST RESTRAINTS ON DUE TO PATIENT ATTEMPTING TO PULL IV LINES AND SHELL CATHETER TUBING. IV FLUIDS INFUSING ORDERED. SIDE RAILS UP, BED IN LOW LOCKED POSITION, CALL LIGHT WITHIN REACH, ENDORSED TO PROGRAMMING EQUIPMENT OPERATOR NURSE FOR CONTINUITY OF CARE.
[2018-04-14] MEDS: SIMVASTATIN 10 MG TABLET PO SCH (21:32)
[2018-04-14] MEDS: DOCUSATE SODIUM 100 MG CAPSULE PO SCH (21:32)
[2018-04-14] MEDS: INSULIN GLARGINE, 100 UNIT/ML CARTRIDGE SQ SCH (21:40)
[2018-04-15] VITALS (7 sets, daily range): BP systolic 110–139; BP diastolic 61–80
[2018-04-15] MEDS: IV NS 0.9% 1,000 ML IV PRN ×2 (03:15→16:24)
[2018-04-15] MEDS: VANCOMYCIN 1 GM in IV D5W 250 ML IV SCH ×2 (05:42→17:21)
[2018-04-15] MEDS: FLUDROCORTISONE 0.1 MG TABLET PO SCH ×4 (05:42→23:09)
[2018-04-15 06:19] LABS: BASOPHILS # (AUTO) 0.1 /CMM (0.0-0.2); BASOPHILS % (AUTO) 0.3 % (0.0-2.0); EOSINOPHILS % (AUTO) 0.2 % (0.0-6.0); HEMATOCRIT 32 % (39-51); HEMOGLOBIN 10.9 g/dL (13.5-17.5); LYMPHOCYTES # (AUTO) 2.1 /CMM (0.8-4.8); LYMPHOCYTES % (AUTO) 13.4 % (20.0-44.0); MEAN CORPUSCULAR HGB CONC 34 g/dl (31.0-36.0); MEAN CORPUSCULAR VOLUME 89 fL (80-96); MONOCYTES # (AUTO) 0.7 /CMM (0.1-1.30); MONOCYTES % (AUTO) 4.2 % (2.0-12.0); NEUTROPHILS % (AUTO) 81.9 % (43.0-81.0); PLATELET COUNT (AUTO) 179 /CMM (150-450); RED BLOOD CELL COUNT(AUTO) 3.61 MIL/uL (4.5-6.0); WHITE BLOOD COUNT (AUTO) 15.9 K/uL (4.3-11.0)
[2018-04-15 06:34] LABS: CALCIUM, SERUM 6.8 mg/dL (8.5-10.1); CREATININE 0.9 mg/dL (0.6-1.3); POTASSIUM 3.4 mmol/L (3.5-5.1)
--- NOTE | 2018-04-15 08:14 | NUR ---
MINE MOTOR ENGINEER NOTES PATIENT RECEIVED RESTING INSIDE ROOM. AWAKE, ALERT AND ORIENTED TO SELF. BREATHING EVEN AND UNLABORED. NO ACUTE DISTRESS. DENIES ANY PAIN OR DISCOMFORT. BILATERAL SOFT WRIST RESTRAINTS IN PLACE. SHELL CATHETER IN PLACE. IV FLUIDS INFUSING. WILL CONTINUE TO MONITOR. SAFETY PRECAUTIONS IN PLACE. BED LOCKED AND IN LOW POSITION. BILATERAL UPPER SIDE RAILS UP AND LOCKED. CALL LIGHT WITHIN EASY REACH
[2018-04-15] MEDS: GLUCERNA SHAKE 237 ML CAN PO SCH ×3 (08:57→17:20)
[2018-04-15] MEDS: ENOXAPARIN SODIUM 40 MG/0.4 ML DISP.SYRIN SQ SCH (08:57)
[2018-04-15] MEDS: BLOOD SUGAR DIAGNOSTIC 1 EACH STRIP IN SCH ×4 (08:57→21:44)
[2018-04-15] MEDS: MAGNESIUM OXIDE 400 MG TABLET PO SCH ×2 (08:58→17:20)
[2018-04-15] MEDS: LISINOPRIL (10MG) 10 MG TABLET PO SCH (08:58)
[2018-04-15] MEDS: TOPIRAMATE 25 MG TABLET PO SCH ×2 (08:58→21:43)
[2018-04-15] MEDS: HYDROCORTISONE SOD SUCCINATE 100 MG/2 ML VIAL IV SCH ×2 (08:58→12:06)
[2018-04-15] MEDS: LEVOFLOXACIN (500MG) 500 MG TABLET PO SCH (08:58)
[2018-04-15] MEDS: LINAGLIPTIN 5 MG TABLET PO SCH (08:58)
[2018-04-15] MEDS: PANTOPRAZOLE 40 MG VIAL IV SCH (08:58)
[2018-04-15] MEDS: METFORMIN 500 MG TABLET PO SCH ×2 (08:58→17:21)
[2018-04-15] MEDS: ASPIRIN 81 MG TAB.CHEW PO SCH (08:58)
[2018-04-15] MEDS: GABAPENTIN 300 MG CAPSULE PO SCH ×3 (08:58→21:43)
[2018-04-15] MEDS: LACTOBACILLUS RHAMNOSUS GG 1 EACH CAP.SPRINK PO SCH ×2 (08:58→17:21)
[2018-04-15] MEDS ORDERED: POTASSIUM CHLORIDE 20 MEQ TAB.PRT.SR PO SCH (11:00)
[2018-04-15] MEDS: CALCIUM CARBONATE (1250) 500 MG TABLET PO SCH (17:20)
--- NOTE | 2018-04-15 19:20 | NUR ---
DIRECTOR AGRICULTURAL SERVICES NOTES PATIENT RESTING INSIDE ROOM. AWAKE, ALERT AND ORIENTED, RESPONDS TO VERBAL AND TACTILE STIMULI. NO ACUTE DISTRESS. ALL NURSING NEEDS ATTENDED AND MET. PATIENT KEPT CLEAN, DRY AND COMFORTABLE. BILATERAL SOFT WRIST RESTRAINTS IN PLACE. SHELL CATHETER IN PLACE. SHELL CATHETER CARE DONE. ENDORSED TO INCOMING SHIFT FOR RAND. BED LOCKED AND IN LOW POSITION. BILATERAL UPPER SIDE RAILS UP AND LOCKED. CALL LIGHT WITHIN EASY REACH
--- NOTE | 2018-04-15 19:37 | NUR ---
HOTHOUSE WORKER NOTES RECEIVED PT ON BED. A/O X 1 CONFUSED. ON ROOM AIR NO RESPIRATORY DISTRESS NOTED. ON TELE MONITOR SR. ON BILATERAL SOFT RESTRAINTS. ON SHELL CATH DRAINING DARK YELLOW URINE. IV ACCESS ON REGINE PICC NS @ 125CC/HR. HEAD OF BED ELEVATED. SIDE RAILS UP. CALL LIGHT WITHIN REACH. BED ALARM ON. WILL CONTINUE TO MONITOR PT CLOSELY.
[2018-04-15] MEDS: DOCUSATE SODIUM 100 MG CAPSULE PO SCH (21:43)
[2018-04-15] MEDS: SIMVASTATIN 10 MG TABLET PO SCH (21:43)
[2018-04-15] MEDS: INSULIN GLARGINE, 100 UNIT/ML CARTRIDGE SQ SCH (21:46)
[2018-04-16] VITALS: BP 127/65
[2018-04-16] MEDS: IV NS 0.9% 1,000 ML IV PRN ×2 (00:12→12:32)
[2018-04-16 04:00] VITALS: BP 123/61
[2018-04-16] MEDS: VANCOMYCIN 1 GM in IV D5W 250 ML IV SCH (05:03)
[2018-04-16] MEDS: FLUDROCORTISONE 0.1 MG TABLET PO SCH ×2 (05:03→12:19)
[2018-04-16 06:17] VITALS: BP 123/61
--- NOTE | 2018-04-16 06:44 | NUR ---
TRAY DELIVERY AIDE NOTES ON ACUTE CHANGES NOTED DURING THE SHIFT. PROVIDED COMFORT AND SAFETY. DUE MEDS GIVEN. WILL ENDORSE TO THE AM NURSE FOR CONTINUITY OF CARE.
[2018-04-16 06:52] LABS: BASOPHILS % (AUTO) 0.2 % (0.0-2.0); EOSINOPHILS % (AUTO) 1.7 % (0.0-6.0); HEMATOCRIT 33 % (39-51); HEMOGLOBIN 11.1 g/dL (13.5-17.5); LYMPHOCYTES # (AUTO) 2.3 /CMM (0.8-4.8); LYMPHOCYTES % (AUTO) 15.5 % (20.0-44.0); MEAN CORPUSCULAR HGB CONC 34 g/dl (31.0-36.0); MEAN CORPUSCULAR VOLUME 89 fL (80-96); MONOCYTES # (AUTO) 0.8 /CMM (0.1-1.30); MONOCYTES % (AUTO) 5.3 % (2.0-12.0); NEUTROPHILS # (AUTO) 11.4 /CMM (1.8-8.9); NEUTROPHILS % (AUTO) 77.3 % (43.0-81.0); PLATELET COUNT (AUTO) 229 /CMM (150-450); RED BLOOD CELL COUNT(AUTO) 3.68 MIL/uL (4.5-6.0); WHITE BLOOD COUNT (AUTO) 14.7 K/uL (4.3-11.0)
--- NOTE | 2018-04-16 07:00 | NUR ---
PROCESS TECH OPENING NOTES RECEIVED PT LYING ON BED.ALERT/ORIENTED X1 WITH CONFUSED AND APHASIC.B/L SOFT WRIST RESTRAINTS PRESENT,SKIN IS INTACT.ON TELE HR IS 70'S WITH SR.NO SOB AND ACUTE DISTRESS NOTED.TOLERATING WELL ON ROOM AIR.NO PAIN NOTED.SKIN ASSESSMENT IS DONE.IV LINE IS ON LEFT AC AND LEFT UA PICC LINE PRESENT,SITE IS CLEAN,DRY AND INTACT.NO INFILTRATION NOTED.SAFETY IS MAINTAINED AT ALL TIMES.BED IS IN LOW POSITION AND LOCKED.CALL LIGHT IS WITHIN REACH.WILL CONTINUE TO MONITOR THE PT CLOSELY.
[2018-04-16 07:10] LABS: CREATININE 0.9 mg/dL (0.6-1.3); POTASSIUM 3.3 mmol/L (3.5-5.1)
[2018-04-16 07:39] LABS: LYMPHOCYTES % (MANUAL) 15 % (16-48); MONOCYTES % (MANUAL) 4 % (0-11.0); NEUTROPHILS % (MANUAL) 81 (42-76)
[2018-04-16 08:00] VITALS: BP 130/85
[2018-04-16] MEDS: BLOOD SUGAR DIAGNOSTIC 1 EACH STRIP IN SCH ×2 (08:15→12:30)
[2018-04-16] MEDS: LISINOPRIL (10MG) 10 MG TABLET PO SCH (08:16)
[2018-04-16] MEDS: LEVOFLOXACIN (500MG) 500 MG TABLET PO SCH (08:16)
[2018-04-16] MEDS: ASPIRIN 81 MG TAB.CHEW PO SCH (08:16)
[2018-04-16] MEDS: PANTOPRAZOLE 40 MG VIAL IV SCH (08:16)
[2018-04-16] MEDS: GABAPENTIN 300 MG CAPSULE PO SCH ×2 (08:16→12:17)
[2018-04-16] MEDS: TOPIRAMATE 25 MG TABLET PO SCH (08:16)
[2018-04-16] MEDS: LACTOBACILLUS RHAMNOSUS GG 1 EACH CAP.SPRINK PO SCH (08:16)
[2018-04-16] MEDS: MAGNESIUM OXIDE 400 MG TABLET PO SCH (08:16)
[2018-04-16] MEDS: GLUCERNA SHAKE 237 ML CAN PO SCH ×2 (08:17→12:20)
[2018-04-16] MEDS: ENOXAPARIN SODIUM 40 MG/0.4 ML DISP.SYRIN SQ SCH (08:21)
--- NOTE | 2018-04-16 09:00 | NUR ---
FIRST ASSISTANT MANAGER NOTES BLOOD SUGAR IS 57.TAB METFORMIN AND LINAGLIPTIN DIDN'T ADMINISTER.PT HAS NO S/S HYPOGLYCEMIA NOTED.ATE BREAKFAST 100%.
--- NOTE | 2018-04-16 10:30 | NUR ---
DOCUMENTATION BILLING CLERK NOTES RECHECKED THE BLOOD SUGAR,74. ORDERED TO D/C TAB METFORMIN AND LINAGLIPTIN.NEW ORDERS NOTED AND CARRIED OUT.
[2018-04-16 12:00] VITALS: BP 118/74
[2018-04-16] MEDS ORDERED: POTASSIUM CHLORIDE 20 MEQ TAB.PRT.SR PO SCH (12:30)
[2018-04-16] MEDS ORDERED: LEVO500T2 PO (12:59)
--- NOTE | 2018-04-16 15:30 | NUR ---
LIEUTENANT BALLISTICSCAREERS COUNSELLOR NOTES PT IS READY TO DISCHARGE TO [facility] ORDERED BY DR.RUTHERFORD DIALLO.ALERT/ORIENTED X1 WITH CONFUSION.SKIN ASSESSMENT IS DONE AND NOTED WITH REDNESS ON PERINEAL,ZEEGAR IS APPLIED.VITAL SIGNS ARE CHECKED AND IT IS WNL.PICC LINE AND IV LINE FROM LEFT HAND IS REMOVED,NO BLEEDING NOTED AND PRESSURE DRESSING IS APPLIED.REPORT GIVEN TO MARGE NOVOA IN [facility].NO COMPLICATIONS NOTED.PICKED UP BY THE AMBULANCE PERSONNEL TO REHAB.
[2018-04-17] MEDS ORDERED: ERGOCALCIFEROL (VITAMIN D 2) 50,000 UNIT CAPSULE PO SCH (09:00)
[2018-04-23] MEDS ORDERED: TOPIRAMATE 25 MG TABLET PO SCH (09:00)
== END 2018-04-16 15:40 | DRG 871 ==
LOC: ER 04:54 → ICU 07:22 → TELE1 04-14 10:10
PROVIDERS: ADMIT Nurse Practitioner Acute Care; ATTEND Internal Medicine
PROC: 02HV33Z Insertion of Infusion Device into Superior Vena Cava, Percutaneous Approach (ICD-10-PCS; principal; 2018-04-12)
PROC: B548ZZA Ultrasonography of Superior Vena Cava, Guidance (ICD-10-PCS; 2018-04-12)
DX: A41.9 Sepsis, unspecified organism (principal); N17.0 Acute kidney failure with tubular necrosis; J96.91 Respiratory failure, unspecified with hypoxia; G92 Toxic encephalopathy; R65.21 Severe sepsis with septic shock; I21.A1 Myocardial infarction type 2; J18.9 Pneumonia, unspecified organism; E87.0 Hyperosmolality and hypernatremia; E87.2 Acidosis; R47.01 Aphasia; E86.0 Dehydration; E83.42 Hypomagnesemia; E83.51 Hypocalcemia; E87.6 Hypokalemia; F02.80 Dementia in other diseases classified elsewhere, unspecified severity, without behavioral disturbance, psychotic disturbance, mood disturbance, and anxiety; G30.9 Alzheimer's disease, unspecified; F09 Unspecified mental disorder due to known physiological condition; R91.1 Solitary pulmonary nodule; I10 Essential (primary) hypertension; E11.9 Type 2 diabetes mellitus without complications; K21.9 Gastro-esophageal reflux disease without esophagitis; N40.0 Benign prostatic hyperplasia without lower urinary tract symptoms; R13.10 Dysphagia, unspecified; Z87.891 Personal history of nicotine dependence; G40.909 Epilepsy, unspecified, not intractable, without status epilepticus
CPT/HCPCS: 36415; 36600; 70450-TC; 71045-TC; 80048-TC; 80053-TC; 80061-TC; 80076-TC; 80202-TC; 81000-TC; 82533; 82962-TC; 83605-TC; 83735-TC; 83880; 83921; 84100-TC; 84439-TC; 84443-TC; 84484-TC; 85025-TC; 85730-TC; 87040-TC; 87081-TC; 87086-TC; 87400; 92611-TC; 93307-TC; A4217; A6402; C1751; C9113; G0378; J0456; J0692; J0696; J1650; J1720; J1815; J2543; J3370; J3475; J3480; J3490; J7030; J7040; J7050; J7060

== ENCOUNTER 2018-12-27 12:37 | Emergency (ER) | payer MEDICARE, MEDICAID ==
[~2018-12-27] VITALS: Ht 170.2 cm; Wt 79.4 kg
[~2018-12-27 12:37] MED LIST changes: +ASPI-1169 PO; +BISA10SU11 RC; +BLOO-668 IN; -CHOL10002 PO; +DONE10TA44 PO; +ERGO500014 PO; +MAGN400O6 PO; +MAGN400T26 PO; -METF-440 PO; +NA P133E RC; -RISP0.5T20 PO; -SITA100T PO
--- NOTE | 2018-12-27 12:47 | NUR ---
GERONIMO YOUNGBLOOD FROM SNF GLF, HEAD INJURY -KO, HEAD WOUND, TO ER BED 11, HOOKED TO MONITOR, CHANGED TO GOWN, PROVIDED W WARM BLANKET, AWAITING MD BARON.
--- NOTE | 2018-12-27 13:08 | NUR ---
PA FOSTER AT BEDSIDE
[2018-12-27] MEDS ORDERED: TDAP [DIPH/PERTUSSIS/TET] 0.5 ML VIAL IM ONE ×2 (14:00→14:05)
--- NOTE | 2018-12-27 14:24 | NUR ---
CALLED [facility] FOR S TRANSPORT ETA 1600 TRIP [id number]
--- NOTE | 2018-12-27 16:12 | NUR ---
CONTACTED [facility], NO ANSWER FROM TAX SERVICES PROFESSIONAL
--- NOTE | 2018-12-27 16:50 | NUR ---
Patient picked up by [facility] Unit 124 in stable condition. Will be brought back to [place], Written and verbal after care instructions given. Ambulance EMT verbalizes understanding of instruction.
[2018-12-27 16:52] VITALS: BP 128/67
== END 2018-12-27 16:52 ==
LOC: ER 12:39
DX: S00.81XA Abrasion of other part of head, initial encounter (principal); R55 Syncope and collapse; G30.9 Alzheimer's disease, unspecified; F02.80 Dementia in other diseases classified elsewhere, unspecified severity, without behavioral disturbance, psychotic disturbance, mood disturbance, and anxiety; G40.909 Epilepsy, unspecified, not intractable, without status epilepticus; I10 Essential (primary) hypertension; K21.9 Gastro-esophageal reflux disease without esophagitis; F29 Unspecified psychosis not due to a substance or known physiological condition; F41.9 Anxiety disorder, unspecified; E11.9 Type 2 diabetes mellitus without complications; Z79.82 Long term (current) use of aspirin; Z79.4 Long term (current) use of insulin; W18.09XA Striking against other object with subsequent fall, initial encounter; Y93.89 Activity, other specified; Y92.89 Other specified places as the place of occurrence of the external cause; Y99.8 Other external cause status
CPT/HCPCS: 70450-TC; 72125-TC; 90715

== ENCOUNTER 2021-08-13 15:17 | Inpatient (IN) | payer MEDICARE, OTHER ==
[~2021-08-13] VITALS: Ht 182.9 cm; Wt 69.9 kg
[~2021-08-13 15:17] MED LIST changes: +LISI10TA29 PO; -LISI10TA5 PO; -MELA3TAB PO; +MELA3TAB41 PO; -SIMV10TA6 PO; +SIMV10TA98 PO
[2021-08-13] MEDS ORDERED: ACETAMINOPHEN 650 MG/SUPP.RECT RC ONE ×2 (15:24→15:30)
[2021-08-13] MEDS ORDERED: VANCOMYCIN 1 GM in IV D5W 250 ML IV ONE (15:30)
[2021-08-13] MEDS ORDERED: CEFEPIME 1 GM in IV D5W 50 ML IV ONE (15:30)
[2021-08-13] MEDS ORDERED: IV NS 0.9% 1,000 ML BAG IV ONE (15:30)
[2021-08-13] MEDS ORDERED: LIDOCAINE 2% JEL UROJET 10 ML MM ONE (15:31)
[2021-08-13] MEDS ORDERED: FERR325T23 PO (15:48)
[2021-08-13] MEDS ORDERED: CALC-883 PO (15:48)
[2021-08-13] MEDS ORDERED: MULT-447 PO (15:48)
[2021-08-13] MEDS ORDERED: ASCO500T20 PO (15:48)
[2021-08-13] MEDS ORDERED: CRAN400C PO (15:48)
[2021-08-13] MEDS ORDERED: AMLO5TAB4 PO (15:48)
[2021-08-13] MEDS ORDERED: RISP0.5T5 PO (15:48)
[2021-08-13] MEDS ORDERED: CEFEPIME 1 GM VIAL ONE (15:55)
[2021-08-13 16:16] LABS: BASOPHILS % (AUTO) 0.1 % (0.0-2.0); HEMATOCRIT 47 % (39-51); HEMOGLOBIN 15.4 g/dL (13.5-17.5); LYMPHOCYTES # (AUTO) 0.5 K/uL (0.8-4.8); LYMPHOCYTES % (AUTO) 2.1 % (20.0-44.0); MEAN CORPUSCULAR HGB CONC 33 g/dl (31.0-36.0); MEAN CORPUSCULAR VOLUME 88 fL (80-96); MONOCYTES # (AUTO) 0.7 K/uL (0.1-1.30); MONOCYTES % (AUTO) 3.4 % (2.0-12.0); NEUTROPHILS # (AUTO) 20.9 K/uL (1.8-8.9); NEUTROPHILS % (AUTO) 94.4 % (43.0-81.0); PLATELET COUNT (AUTO) 227 K/uL (150-450); RED BLOOD CELL COUNT(AUTO) 5.38 MIL/uL (4.5-6.0); WHITE BLOOD COUNT (AUTO) 22.2 K/uL (4.3-11.0)
[2021-08-13 16:18] LABS: ALANINE AMINOTRANSFERASE 23 U/L (12-78); ALBUMIN 3.5 g/dL (3.4-5.0); ALKALINE PHOSPHATASE 98 U/L (46-116); ASPARTATE AMINOTRANSFERASE 11 U/L (15-37); BILIRUBIN,DIRECT 0.2 mg/dL (0.0-0.2); CALCIUM, SERUM 9.1 mg/dL (8.5-10.1); CARBON DIOXIDE 29 mmol/L (21-32); CHLORIDE 102 mmol/L (98-107); CREATININE 1.2 mg/dL (0.6-1.3); GLUCOSE 199 mg/dL (74-106); POTASSIUM 3.8 mmol/L (3.5-5.1); SODIUM SERUM 138 mmol/L (136-145); TOTAL PROTEIN, SERUM 7.3 g/dL (6.4-8.2); UREA NITROGEN, BLOOD 18 mg/dL (7-18)
[2021-08-13 18:00] LABS: BILIRUBIN,URINE NEGATIVE (NEGATIVE); COLOR,URINE YELLOW (YELLOW); LEUKOCYTE ESTERASE ,URINE NEGATIVE (NEGATIVE); NITRITE, URINE NEGATIVE (NEGATIVE); PROTEIN,URINE TRACE mg/dl (NEGATIVE); UGLUCOSE NEGATIVE (NEGATIVE)
[2021-08-13] MEDS ORDERED: MAGNESIUM HYDROXIDE 30 ML UDC PO PRN (18:30)
[2021-08-13] MEDS ORDERED: BISACODYL SUPP (10 MG) 10 MG/SUPP.RECT SUPP.RECT RC PRN (18:30)
[2021-08-13] MEDS ORDERED: NA PHOS,M-B/NA PHOS,DI-BA 1 EA ENEMA RC PRN (18:30)
[2021-08-13 18:36] LABS: WBC,URINE 0-2 /HPF (0-3)
[2021-08-13 18:37] LABS: BACTERIA,URINE 1+ /HPF (None Seen); CALCIUM OXALATE CRYSTALS,UR Many /HPF (None Seen); FINE GRANULAR CASTS,URINE Few /LPF (None Seen); MUCUS,URINE Few /LPF (None Seen); SQUAMOUS EPITHELIAL CELL,UR 0-2 /HPF (None Seen); URINE AMORPHOUS URATE Many /HPF (None Seen)
[2021-08-13 18:47] LABS: BAND % (MANUAL) 16 % (0.0-5.0); LYMPHOCYTES % (MANUAL) 4 % (16-48); MONOCYTES % (MANUAL) 2 % (0-11.0); NEUTROPHILS % (MANUAL) 78 (42-76)
[2021-08-13] MEDS ORDERED: ONDANSETRON HCL/PF 4 MG/2 ML VIAL IVP PRN (19:00)
[2021-08-13] MEDS ORDERED: IPRATROPIUM NEB FS 0.5 MG/2.5 ML AMPUL.NEB NEB PRN (19:00)
[2021-08-13] MEDS ORDERED: ALBUTEROL FS 2.5 MG/0.5 ML VIAL.NEB NEB PRN (19:00)
[2021-08-13] MEDS ORDERED: DEXTROSE 50%-WATER 50 ML DISP.SYRIN IV PRN (19:00)
[2021-08-13] MEDS ORDERED: Z GUARD REMEDY 4 OZ OINT TP PRN (19:00)
[2021-08-13 21:22] VITALS: BP 106/71
[2021-08-13] MEDS: BLOOD SUGAR DIAGNOSTIC 1 EACH STRIP IN SCH (21:50)
[2021-08-13] MEDS: DOCUSATE SODIUM 100 MG CAPSULE PO SCH (22:00)
[2021-08-13] MEDS: INSULIN GLARGINE, 100 UNIT/ML CARTRIDGE SQ SCH (22:00)
[2021-08-13] MEDS: SIMVASTATIN 10 MG TABLET PO SCH (22:00)
[2021-08-13] MEDS: DONEPEZIL 5 MG TABLET PO SCH (22:00)
[2021-08-13] MEDS: ENOXAPARIN SODIUM 40 MG/0.4 ML DISP.SYRIN SQ SCH (22:04)
[2021-08-13] MEDS: IV NS 0.9% 1,000 ML IV PRN (22:07)
[2021-08-13] MEDS ORDERED: PIPERACILLIN /TAZOBACTAM 2.25 G VIAL IV ONE (23:04)
[2021-08-13] MEDS: ZOSYN IVPB 4.5 G in IV D5W 50ml IV SCH (23:38)
[2021-08-14] VITALS: BP 125/76
[2021-08-14 04:00] VITALS: BP 102/65
[2021-08-14] MEDS ORDERED: PIPERACILLIN /TAZOBACTAM 2.25 G VIAL IV ONE (04:52)
[2021-08-14] MEDS: ZOSYN IVPB 4.5 G in IV D5W 50ml IV SCH (05:15)
[2021-08-14] MEDS: BLOOD SUGAR DIAGNOSTIC 1 EACH STRIP IN SCH ×4 (06:56→21:32)
[2021-08-14] MEDS: INSULIN REGULAR, HUMAN 100 UNIT/ML 3 ML VIAL SQ PRN ×4 (06:56→21:34)
[2021-08-14] MEDS ORDERED: VANCOMYCIN 1 GM in IV D5W 250 ML IV SCH (07:30)
[2021-08-14 08:00] VITALS: BP 108/65
[2021-08-14] MEDS: PANTOPRAZOLE 40 MG TABLET.DR PO SCH (08:16)
[2021-08-14] MEDS: GABAPENTIN 300 MG CAPSULE PO SCH ×3 (08:17→16:10)
[2021-08-14] MEDS: FERROUS SULFATE (325 MG) 325 MG/TAB TABLET PO SCH ×2 (08:17→16:10)
[2021-08-14] MEDS: MAGNESIUM OXIDE 400 MG TABLET PO SCH ×2 (08:17→16:10)
[2021-08-14] MEDS: ASPIRIN 81 MG TAB.CHEW PO SCH (08:17)
[2021-08-14] MEDS: TOPIRAMATE 25 MG TABLET PO SCH ×3 (08:18→16:11)
[2021-08-14] MEDS: ASCORBIC ACID 500 MG TABLET PO SCH (08:18)
[2021-08-14] MEDS: risperiDONE 0.25 MG TABLET PO SCH ×3 (08:18→16:11)
[2021-08-14 09:03] LABS: BASOPHILS % (AUTO) 0.2 % (0.0-2.0); EOSINOPHILS % (AUTO) 0.6 % (0.0-6.0); HEMATOCRIT 38 % (39-51); HEMOGLOBIN 12.5 g/dL (13.5-17.5); LYMPHOCYTES % (AUTO) 12.6 % (20.0-44.0); MEAN CORPUSCULAR HGB CONC 34 g/dl (31.0-36.0); MEAN CORPUSCULAR VOLUME 88 fL (80-96); MONOCYTES # (AUTO) 0.6 K/uL (0.1-1.30); MONOCYTES % (AUTO) 3.8 % (2.0-12.0); NEUTROPHILS # (AUTO) 13.2 K/uL (1.8-8.9); NEUTROPHILS % (AUTO) 82.8 % (43.0-81.0); PLATELET COUNT (AUTO) 197 K/uL (150-450); RED BLOOD CELL COUNT(AUTO) 4.28 MIL/uL (4.5-6.0)
[2021-08-14 09:22] LABS: CALCIUM, SERUM 8.1 mg/dL (8.5-10.1); MAGNESIUM 1.6 mg/dL (1.8-2.4); PHOSPHORUS 2.6 mg/dL (2.5-4.9); POTASSIUM 3.4 mmol/L (3.5-5.1)
[2021-08-14] MEDS ORDERED: POTASSIUM CHLORIDE 20 MEQ TAB.PRT.SR PO SCH (10:00)
[2021-08-14] MEDS ORDERED: MAGNESIUM OXIDE 400 MG TABLET PO ONE (10:00)
[2021-08-14] MEDS: ACETAMINOPHEN 325 MG TABLET PO PRN (10:16)
[2021-08-14 12:00] VITALS: BP 111/83
[2021-08-14] MEDS: PIPERACILLIN /TAZOBACTAM 3.375 G in IV D5W 100 ML IV SCH ×2 (12:24→20:24)
[2021-08-14] MEDS: IV NS 0.9% 1,000 ML IV PRN (14:01)
[2021-08-14 16:00] VITALS: BP 103/64
[2021-08-14 20:00] VITALS: BP 99/59
[2021-08-14] MEDS: VANCOMYCIN 0.75 GM in IV D5W 250 ML IV SCH (20:15)
[2021-08-14] MEDS: DONEPEZIL 5 MG TABLET PO SCH (21:16)
[2021-08-14] MEDS: DOCUSATE SODIUM 100 MG CAPSULE PO SCH (21:17)
[2021-08-14] MEDS: SIMVASTATIN 10 MG TABLET PO SCH (21:17)
[2021-08-14] MEDS: ENOXAPARIN SODIUM 40 MG/0.4 ML DISP.SYRIN SQ SCH (21:21)
[2021-08-14] MEDS: INSULIN GLARGINE, 100 UNIT/ML CARTRIDGE SQ SCH (21:32)
[2021-08-15 00:10] VITALS: BP 100/57
[2021-08-15] MEDS: ACETAMINOPHEN 325 MG TABLET PO PRN ×2 (02:43→10:14)
[2021-08-15] MEDS: PIPERACILLIN /TAZOBACTAM 3.375 G in IV D5W 100 ML IV SCH ×3 (03:14→19:54)
[2021-08-15 04:43] VITALS: BP 109/45
[2021-08-15] MEDS: BLOOD SUGAR DIAGNOSTIC 1 EACH STRIP IN SCH ×4 (06:47→21:36)
[2021-08-15] MEDS: INSULIN REGULAR, HUMAN 100 UNIT/ML 3 ML VIAL SQ PRN ×2 (06:47→21:35)
[2021-08-15 07:29] LABS: MAGNESIUM 1.6 mg/dL (1.8-2.4); POTASSIUM 3.4 mmol/L (3.5-5.1)
[2021-08-15 08:00] VITALS: BP 118/69
[2021-08-15] MEDS: FERROUS SULFATE (325 MG) 325 MG/TAB TABLET PO SCH ×2 (08:11→17:38)
[2021-08-15] MEDS: GABAPENTIN 300 MG CAPSULE PO SCH ×3 (08:11→17:38)
[2021-08-15] MEDS: PANTOPRAZOLE 40 MG TABLET.DR PO SCH (08:11)
[2021-08-15] MEDS: MAGNESIUM OXIDE 400 MG TABLET PO SCH ×2 (08:11→17:38)
[2021-08-15] MEDS: ASPIRIN 81 MG TAB.CHEW PO SCH (08:11)
[2021-08-15] MEDS: ASCORBIC ACID 500 MG TABLET PO SCH (08:12)
[2021-08-15] MEDS: TOPIRAMATE 25 MG TABLET PO SCH ×3 (08:12→17:39)
[2021-08-15] MEDS: risperiDONE 0.25 MG TABLET PO SCH ×3 (08:12→17:38)
[2021-08-15] MEDS: VANCOMYCIN 0.75 GM in IV D5W 250 ML IV SCH ×2 (08:24→19:41)
[2021-08-15 16:00] VITALS: BP 112/69
[2021-08-15] MEDS: IV NS 0.9% 1,000 ML IV PRN (19:41)
[2021-08-15 20:00] VITALS: BP 115/70
[2021-08-15] MEDS: DOCUSATE SODIUM 100 MG CAPSULE PO SCH (21:16)
[2021-08-15] MEDS: SIMVASTATIN 10 MG TABLET PO SCH (21:16)
[2021-08-15] MEDS: DONEPEZIL 5 MG TABLET PO SCH (21:17)
[2021-08-15] MEDS: ENOXAPARIN SODIUM 40 MG/0.4 ML DISP.SYRIN SQ SCH (21:18)
[2021-08-15] MEDS: INSULIN GLARGINE, 100 UNIT/ML CARTRIDGE SQ SCH (21:33)
[2021-08-16] VITALS: BP 132/72
[2021-08-16 04:00] VITALS: BP_SYST 130; BP_SYST 98; BP_DIAS 56; BP_DIAS 70
[2021-08-16] MEDS: PIPERACILLIN /TAZOBACTAM 3.375 G in IV D5W 100 ML IV SCH ×2 (04:29→11:56)
[2021-08-16 06:16] LABS: BASOPHILS # (AUTO) 0.1 K/uL (0.0-0.2); BASOPHILS % (AUTO) 0.7 % (0.0-2.0); EOSINOPHILS % (AUTO) 2.7 % (0.0-6.0); HEMATOCRIT 36 % (39-51); HEMOGLOBIN 11.8 g/dL (13.5-17.5); LYMPHOCYTES # (AUTO) 2.8 K/uL (0.8-4.8); LYMPHOCYTES % (AUTO) 25.4 % (20.0-44.0); MEAN CORPUSCULAR HGB CONC 33 g/dl (31.0-36.0); MEAN CORPUSCULAR VOLUME 88 fL (80-96); MONOCYTES # (AUTO) 0.6 K/uL (0.1-1.30); MONOCYTES % (AUTO) 5.4 % (2.0-12.0); NEUTROPHILS # (AUTO) 7.3 K/uL (1.8-8.9); NEUTROPHILS % (AUTO) 65.8 % (43.0-81.0); PLATELET COUNT (AUTO) 201 K/uL (150-450); RED BLOOD CELL COUNT(AUTO) 4.04 MIL/uL (4.5-6.0)
[2021-08-16 06:34] LABS: ALANINE AMINOTRANSFERASE 15 U/L (12-78); ALBUMIN 2.6 g/dL (3.4-5.0); ALKALINE PHOSPHATASE 67 U/L (46-116); ASPARTATE AMINOTRANSFERASE 15 U/L (15-37); BILIRUBIN,TOTAL 0.6 mg/dL (0.2-1.0); CALCIUM, SERUM 7.7 mg/dL (8.5-10.1); CARBON DIOXIDE 24 mmol/L (21-32); CHLORIDE 110 mmol/L (98-107); CREATININE 0.9 mg/dL (0.6-1.3); GLUCOSE 92 mg/dL (74-106); MAGNESIUM 1.9 mg/dL (1.8-2.4); PHOSPHORUS 2.2 mg/dL (2.5-4.9); POTASSIUM 3.4 mmol/L (3.5-5.1); SODIUM SERUM 141 mmol/L (136-145); TOTAL PROTEIN, SERUM 5.9 g/dL (6.4-8.2); UREA NITROGEN, BLOOD 10 mg/dL (7-18)
[2021-08-16 08:00] VITALS: BP 121/61
[2021-08-16] MEDS: BLOOD SUGAR DIAGNOSTIC 1 EACH STRIP IN SCH ×2 (08:40→11:58)
[2021-08-16] MEDS: VANCOMYCIN 0.75 GM in IV D5W 250 ML IV SCH (08:40)
[2021-08-16] MEDS: PANTOPRAZOLE 40 MG TABLET.DR PO SCH (08:41)
[2021-08-16] MEDS: risperiDONE 0.25 MG TABLET PO SCH ×2 (08:41→12:13)
[2021-08-16] MEDS: ASCORBIC ACID 500 MG TABLET PO SCH (08:41)
[2021-08-16] MEDS: TOPIRAMATE 25 MG TABLET PO SCH ×2 (08:41→12:13)
[2021-08-16] MEDS: MAGNESIUM OXIDE 400 MG TABLET PO SCH (08:42)
[2021-08-16] MEDS: ASPIRIN 81 MG TAB.CHEW PO SCH (08:42)
[2021-08-16] MEDS: FERROUS SULFATE (325 MG) 325 MG/TAB TABLET PO SCH (08:42)
[2021-08-16] MEDS: GABAPENTIN 300 MG CAPSULE PO SCH ×2 (08:42→12:14)
[2021-08-16] MEDS ORDERED: POTASSIUM CHLORIDE 20 MEQ TAB.PRT.SR PO SCH (10:00)
[2021-08-16] MEDS ORDERED: K PHOS NEUTRAL 250 MG TABLET PO ONE (10:00)
[2021-08-16] MEDS: PROSOURCE / PROSTAT (PYXIS) 30 ML UDC PO SCH ×2 (10:01→12:14)
[2021-08-16] MEDS ORDERED: AMOX-430 PO (11:00)
[2021-08-16] MEDS ORDERED: PANT40TA49 PO (11:00)
[2021-08-16] MEDS: INSULIN REGULAR, HUMAN 100 UNIT/ML 3 ML VIAL SQ PRN (11:57)
[2021-08-16 16:00] VITALS: BP 115/58
== END 2021-08-16 16:45 | DRG 871 ==
LOC: ER 15:28 → TELE 20:06 → MED 08-16 14:00
PROVIDERS: ATTEND Internal Medicine
DX: A41.9 Sepsis, unspecified organism (principal); J96.01 Acute respiratory failure with hypoxia; J69.0 Pneumonitis due to inhalation of food and vomit; G93.49 Other encephalopathy; R47.01 Aphasia; F41.9 Anxiety disorder, unspecified; G40.909 Epilepsy, unspecified, not intractable, without status epilepticus; E11.9 Type 2 diabetes mellitus without complications; G30.9 Alzheimer's disease, unspecified; I10 Essential (primary) hypertension; F02.80 Dementia in other diseases classified elsewhere, unspecified severity, without behavioral disturbance, psychotic disturbance, mood disturbance, and anxiety; L89.156 Pressure-induced deep tissue damage of sacral region; Z79.4 Long term (current) use of insulin; Z79.82 Long term (current) use of aspirin
CPT/HCPCS: 36415; 70450-TC; 71045-TC; 80048-TC; 80053-TC; 80076-TC; 80202-TC; 81001; 82962-TC; 83605-TC; 83735-TC; 84100-TC; 84484-TC; 85025-TC; 85730-TC; 87040-TC; 87081-TC; 87086-TC; 92526; 92611-TC; C9803; G0378; J0692; J1650; J1815; J2543; J3370; J3490; J7030; J7050; J7060

== ENCOUNTER 2024-11-07 16:15 | Emergency (ER) | payer MEDICARE, OTHER ==
[~2024-11-07] VITALS: Ht 167.6 cm; Wt 77.1 kg
[~2024-11-07 16:15] MED LIST changes: +AMLO5TAB4 PO; +AMOX-430 PO; +ASCO500T20 PO; -BLOO-668 IN; -CALC-1026 PO; +CALC-883 PO; +CRAN400C PO; -ERGO500014 PO; +FERR325T23 PO; -INSU100V3 SQ; -LISI10TA29 PO; +MULT-447 PO; +PANT40TA49 PO; +RISP0.5T5 PO
[2024-11-07 17:05] LABS: PLATELET COUNT (AUTO) 164 K/uL (150-450); RED BLOOD CELL COUNT(AUTO) 4.64 MIL/uL (4.5-6.0); RED CELL DISTRIBUTION WIDTH 13.2 % (11.5-15.0); WHITE BLOOD COUNT (AUTO) 11.0 K/uL (4.3-11.0)
[2024-11-07 17:10] LABS: CALCIUM, SERUM 7.7 mg/dL (8.5-10.1); CREATININE 0.7 mg/dL (0.6-1.3); SODIUM SERUM 142.0 mmol/L (136-145); UREA NITROGEN, BLOOD 19.0 mg/dL (7-18)
[2024-11-07 17:16] LABS: ASPARTATE AMINOTRANSFERASE 17.0 U/L (15-37); INR 1.04 (0.91-1.10); TOTAL PROTEIN, SERUM 6.2 g/dL (6.4-8.2)
[2024-11-07] MEDS: IV NS 0.9% 1,000 ML BAG IV ONE (17:18)
[2024-11-07 17:19] LABS: LACTIC ACID 1.4 mmol/L (0.4-2.0)
[2024-11-07 18:43] LABS: APPEARANCE,URINE CLEAR (CLEAR); BLOOD, URINE NEGATIVE Ery/uL (NEGATIVE); LEUKOCYTE ESTERASE ,URINE NEGATIVE (NEGATIVE); NITRITE, URINE NEGATIVE (NEGATIVE); UGLUCOSE TRACE mg/dL (NEGATIVE)
[2024-11-07 18:59] LABS: ADD URINE CULTURE NO; SQUAMOUS EPITHELIAL CELL,UR None Seen /HPF (None Seen)
[2024-11-07 21:15] VITALS: BP 162/90; TEMP 96.7; O2SAT 99
== END 2024-11-07 21:16 ==
LOC: ER 16:20
DX: G30.9 Alzheimer's disease, unspecified (principal); F02.80 Dementia in other diseases classified elsewhere, unspecified severity, without behavioral disturbance, psychotic disturbance, mood disturbance, and anxiety; I10 Essential (primary) hypertension; G40.909 Epilepsy, unspecified, not intractable, without status epilepticus; E78.5 Hyperlipidemia, unspecified; E11.9 Type 2 diabetes mellitus without complications; I25.10 Atherosclerotic heart disease of native coronary artery without angina pectoris; I48.91 Unspecified atrial fibrillation; Z79.82 Long term (current) use of aspirin; Z79.899 Other long term (current) drug therapy
CPT/HCPCS: 99285; 96360; 71045; 96361; 93005; 84145; 85025; 80048; 87040 ×2; 87086; 83605; 80076; 81001; 36415; 85730; J7030

== ENCOUNTER 2025-01-09 16:28 | Emergency (ER) | payer MEDICARE, OTHER ==
[~2025-01-09] VITALS: Ht 170.2 cm; Wt 73.5 kg
[2025-01-09 16:34] VITALS: TEMP 98.5
[2025-01-09] MEDS: IV NS 0.9% 1,000 ML BAG IV ONE (18:00)
[2025-01-09 18:32] LABS: PLATELET COUNT (AUTO) 179 K/uL (150-450); RED BLOOD CELL COUNT(AUTO) 4.83 MIL/uL (4.5-6.0); RED CELL DISTRIBUTION WIDTH 13.2 % (11.5-15.0); WHITE BLOOD COUNT (AUTO) 9.4 K/uL (4.3-11.0)
[2025-01-09 18:40] LABS: CALCIUM, SERUM 7.9 mg/dL (8.5-10.1); CREATININE 0.7 mg/dL (0.6-1.3); SODIUM SERUM 140 mmol/L (136-145); UREA NITROGEN, BLOOD 13 mg/dL (7-18)
[2025-01-09] MEDS ORDERED: UBID100C5 PO (18:40)
[2025-01-09] MEDS ORDERED: INSU100I26 SQ (18:40)
[2025-01-09] MEDS ORDERED: TOPI25TA PO (18:40)
[2025-01-09] MEDS ORDERED: CARB15DR EACHEYE (18:40)
[2025-01-09] MEDS ORDERED: PHOSPHATE BINDER PO (18:40)
[2025-01-09] MEDS ORDERED: SIMV20TA2 PO (18:40)
[2025-01-09] MEDS ORDERED: CHOL100043 PO (18:40)
[2025-01-09] MEDS ORDERED: CRAN250C PO (18:40)
[2025-01-09 18:46] LABS: ASPARTATE AMINOTRANSFERASE 25 U/L (15-37); TOTAL PROTEIN, SERUM 6.5 g/dL (6.4-8.2)
[2025-01-09 18:49] LABS: LACTIC ACID 1.6 mmol/L (0.4-2.0)
[2025-01-09 19:11] LABS: APPEARANCE,URINE CLEAR (CLEAR); BLOOD, URINE Trace-intact Ery/uL (NEGATIVE); LEUKOCYTE ESTERASE ,URINE Negative (NEGATIVE); UGLUCOSE Negative (NEGATIVE)
[2025-01-09 19:12] LABS: NITRITE, URINE NEGATIVE (NEGATIVE)
[2025-01-09 19:13] LABS: ADD URINE CULTURE NO; SQUAMOUS EPITHELIAL CELL,UR None Seen /HPF (None Seen)
[2025-01-09] MEDS ORDERED: Calcium Gluconate 0.465 MEQ/ML VIAL IV ONE (21:04)
[2025-01-09] MEDS: Calcium Gluconate 1GM/10ML 4.65 MEQ in IV NS 0.9% 100 ML IV ONE (21:10)
[2025-01-09 21:59] VITALS: BP 127/83; O2SAT 98
== END 2025-01-09 23:52 | disposition short-term general hospital (02) ==
LOC: ER 16:35
DX: E83.51 Hypocalcemia (principal); R62.7 Adult failure to thrive; R21 Rash and other nonspecific skin eruption; E11.9 Type 2 diabetes mellitus without complications; G30.9 Alzheimer's disease, unspecified; F02.80 Dementia in other diseases classified elsewhere, unspecified severity, without behavioral disturbance, psychotic disturbance, mood disturbance, and anxiety; G40.909 Epilepsy, unspecified, not intractable, without status epilepticus; I10 Essential (primary) hypertension; Z79.4 Long term (current) use of insulin; Z79.82 Long term (current) use of aspirin; Z79.899 Other long term (current) drug therapy; Z86.79 Personal history of other diseases of the circulatory system; Z20.822 Contact with and (suspected) exposure to COVID-19
CPT/HCPCS: 99285; 96365; 71045; 96361; 87426; 93005; 87804 ×2; 84145; 85025; 80048; 87040 ×2; 87086; 83605; 80076; 81001; 36415; 84484 ×2; J0612; J7030